=== PATIENT | female | born 1935 | race Caucasian/White ===

== ENCOUNTER 2017-08-14 08:15 | Day surgery (SDC) | payer MEDICARE, OTHER, SELFPAY ==
[2017-08-14 08:20] VITALS: BP 169/85; PULSE 74; RESP 16; TEMP 36.6; O2SAT 98; BMI 22.8
[2017-08-14] MEDS: diazePAM 5 MG TABLET 10 MG PO (08:27)
--- NOTE | 2017-08-14 08:29 | PM.HP.1 ---
History of Present Illness Date Patient Seen: 08/14/17 Time Patient Seen: 08:29 Chief complaint: flexible sigmoidoscopy [id number] Narrative: Patient here for a flexible sigmoidoscopy to evaluate an abnormal CT suggesting thickening of the sigmoid colon. She has chronic but intermittent left lower quadrant pain. Patient History Surgical History Status post hysterectomy Family & Social History Family History: Reviewed 08/14/17 by Eddy Juárez MD Social History: household members spouse Meds Home Medications Medication Instructions Recorded Confirmed Type [B FIFTY COMPLEX] #0 09/10/07 History zoster vaccine live (PF) [Zostavax 0.5 ml SQ QDAY #0.5 ml 01/12/17 Rx (PF)] cyclosporine [Restasis] 1 drp OPHTH BID #30 ea 04/08/17 Rx levothyroxine [Synthroid] 75 mcg PO QDAY #30 tab 06/10/17 Rx metoprolol succinate ER 25 mg 25 mg PO QDAY #30 tab 07/17/17 Rx tablet,extended release 24 hr ondansetron 4 mg disintegrating 4 mg SUBLINGUAL Q6HP PRN #20 odt 08/04/17 Rx tablet Allergies Allergy/AdvReac Type Severity Reaction Status Date / Time RAYMUNDO Inhibitors Allergy Severe RASH Unverified 06/17/17 12:06 [RAYMUNDO INHIBITORS] lisinopril [LISINOPRIL] Allergy Severe Unverified 06/17/17 12:06 Sulfa (Sulfonamide Allergy Severe RASH Unverified 06/17/17 12:06 Antibiotics) [SULFA (SULFONAMIDE ANTIBIOTICS)] Review of Systems Review of Systems All systems reviewed & are unremarkable except as noted in HPI and below Gastrointestinal Comments: See HPI Exam Vital Signs (past 8 hours): Vital Signs - 8 hr 08/14/17 08:20 Temperature 97.8 F Pulse Rate 74 Respiratory Rate 16 Blood Pressure 169/85 H Pulse Oximetry 98 Pulse Oximetry 98 Oxygen Delivery Method Room Air Narrative Exam Narrative: No apparent distress. Lungs are clear to auscultation. Heart regular rate and rhythm without murmur gallop. Abdomen is soft nontender without mass. Assessment & Plan Plan: Assessment/Plan Narrative: Flex sig. Risks and benefits were discussed in the office.
--- NOTE | 2017-08-14 08:32 | PM.PREOP ---
Pre-operative Note Interval Note Pre-op Check: History & Physical exam performed today ASA Class (for procedural sedation): II
--- NOTE | 2017-08-14 08:33 | P.HP_ITS ---
History of Present Illness Date Patient Seen: 08/14/17 Time Patient Seen: 08:29 Chief complaint: flexible sigmoidoscopy [id number] Narrative: Patient here for a flexible sigmoidoscopy to evaluate an abnormal CT suggesting thickening of the sigmoid colon. She has chronic but intermittent left lower quadrant pain. Patient History Surgical History Status post hysterectomy Family & Social History Family History: Reviewed 08/14/17 by Eddy Juárez MD Social History: household members spouse Meds Home Medications Medication Instructions Recorded Confirmed Type [B FIFTY COMPLEX] #0 09/10/07 History zoster vaccine live (PF) [Zostavax 0.5 ml SQ QDAY #0.5 ml 01/12/17 Rx (PF)] cyclosporine [Restasis] 1 drp OPHTH BID #30 ea 04/08/17 Rx levothyroxine [Synthroid] 75 mcg PO QDAY #30 tab 06/10/17 Rx metoprolol succinate ER 25 mg 25 mg PO QDAY #30 tab 07/17/17 Rx tablet,extended release 24 hr ondansetron 4 mg disintegrating 4 mg SUBLINGUAL Q6HP PRN #20 odt 08/04/17 Rx tablet Allergies Allergy/AdvReac Type Severity Reaction Status Date / Time RAYMUNDO Inhibitors Allergy Severe RASH Unverified 06/17/17 12:06 [RAYMUNDO INHIBITORS] lisinopril [LISINOPRIL] Allergy Severe Unverified 06/17/17 12:06 Sulfa (Sulfonamide Allergy Severe RASH Unverified 06/17/17 12:06 Antibiotics) [SULFA (SULFONAMIDE ANTIBIOTICS)] Review of Systems Review of Systems All systems reviewed & are unremarkable except as noted in HPI and below Gastrointestinal Comments: See HPI Exam Vital Signs (past 8 hours): Vital Signs - 8 hr 3 08/14/17 08:20 Temperature 97.8 F Pulse Rate 74 Respiratory Rate 16 Blood Pressure 169/85 H Pulse Oximetry 98 Pulse Oximetry 98 Oxygen Delivery Method Room Air Narrative Exam Narrative: No apparent distress. Lungs are clear to auscultation. Heart regular rate and rhythm without murmur gallop. Abdomen is soft nontender without mass. Assessment & Plan Plan: Assessment/Plan Narrative: Flex sig. Risks and benefits were discussed in the office.
[2017-08-14 09:48] VITALS: BP 147/80; PULSE 68; RESP 16; TEMP 36.7; O2SAT 96
--- NOTE | 2017-09-16 14:18 | PM.OP.ENDO ---
Operative Date/Time/Diagnoses Date of procedure: 08/14/17 Time of procedure: 00:00 Pre-op diagnosis: Abnormal CT scan suggesting possible colitis the sigmoid colon Post-op diagnosis: other (Normal exam of the sigmoid colon) Procedure & Clinicians Study performed: Flexible sigmoidoscopy Same procedure as scheduled: Yes Indications: Abnormal CT scan Surgeon: Eddy Juárez Procedure Notes SCOAP/Timeout: Performed Procedure in detail: The patient is placed in left lateral decubitus position. Digital exam was unremarkable. The scope was inserted advanced through the rectum into the sigmoid colon. There was some tortuosity. We reached approximately 60 cm and I could identify no area of concern for colitis. The scope was gradually removed. It was retroflexed and there was no significant finding. Scope withdrawal time: Not applicable Sedation minutes: 0 Findings: other findings (No colitis) Specimen(s): none sent Complications: none Recommendations: Other recommendation (Continue with the care you of already established) Follow up: as needed Disposition: same day surgery
== END 2017-08-14 09:10 | disposition home or self-care (01) ==
PROVIDERS: Family Provider Family Medicine; PCP Family Medicine; Visit Provider Specialist
PROC: 0DJD8ZZ Inspection of Lower Intestinal Tract, Via Natural or Artificial Opening Endoscopic (ICD-10-PCS; CPT 45378; principal; 2017-08-14 07:45)
DX: R93.5 Abnormal findings on diagnostic imaging of other abdominal regions, including retroperitoneum (principal); R10.32 Left lower quadrant pain
CPT/HCPCS: 45330

== ENCOUNTER 2017-12-31 18:26 | Emergency (ER) | payer MEDICARE, OTHER, SELFPAY ==
[2017-12-31 18:33] VITALS: BP 206/93; PULSE 78; RESP 16; TEMP 37.2; O2SAT 96; BMI 22.4
--- NOTE | 2017-12-31 18:53 | DI.CT.S_ITS ---
PROCEDURE: CT ABDOMEN PELVIS W CON INDICATIONS: severe abdominal pain TECHNIQUE: After the administration of intravenous contrast, 5 mm thick sections acquired from the diaphragm to the symphysis. 5 mm coronal and sagittal reformats were acquired. For radiation dose reduction, the following was used: automated exposure control, adjustment of mA and/or kV according to patient size. COMPARISON: [facility], CT, ABDOMEN/PELVIS WITH CONTRAST, 06/10/2017, 10:31. [facility], CT, ABDOMEN/PELVIS WITH CONTRAST, 10/03/2016, 15:45. [facility], CT, ABDOMEN/PELVIS WITH CONTRAST, 12/18/2015, 18:49. [facility], CT, CT BRAIN WO CON, 06/26/2015, 14:07. FINDINGS: Image quality: Excellent. ABDOMEN: Lung bases: Lung bases are clear. Heart size is normal. There is large hiatal hernia. Solid organs: Liver is normal in size and enhancement. Gallbladder is unremarkable. Biliary system is non dilated. Pancreas enhances normally. Spleen is normal in size and enhancement. There is a small volume of perisplenic free fluid. No adrenal nodules. Subcentimeter hypodense foci within the kidneys are too small to characterize on this exam but likely represent renal cysts. Kidneys demonstrate normal size and enhancement, without hydronephrosis. Peritoneum and bowel: There is no evidence of small bowel obstruction. There is diffuse fluid distention of the colon with mild hyperemia and colonic wall thickening. There is mild pericolonic fat stranding in the right anterior lower abdomen. There is a surgical anastomosis in the right hemiabdomen. No free fluid or air. Nodes and vessels: No retroperitoneal or mesenteric adenopathy by size criteria. Aorta and inferior vena cava are normal in size. PELVIS: Genitourinary: Bladder wall thickness is normal. Miscellaneous: Uterus is absent. Bones: No suspicious bony lesions. No vertebral body compression fractures. 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 IMPRESSION: Diffuse fluid filled colon with findings suggestive of a colonic ileus versus a colitis. Recommend followup abdominal CT to ensure resolution. Dictated by: Tavo Hodge M.D. on 12/31/2017 at 21:20 Approved by: Tavo Hodge M.D. on 12/31/2017 at 21:29
[2017-12-31 19:05] LABS: Add Manual Diff / Slide Review NO; Basophils Percent Auto 0.2 % (0-2); Eosinophils Percent Auto 0.5 % (2-4); Hematocrit 43.3 % (36-46); Hemoglobin 14.6 g/dL (12.0-16.0); Lymphocytes Percent Auto 10.2 % (25-40); Mean Corpuscular HGB Conc 33.8 % (30-36); Mean Corpuscular Hemoglobin 32.1 PG (26-34); Mean Corpuscular Volume 95.2 fL (80-100); Monocytes Percent Auto 4.3 % (3-14); Neutrophils Absolute Auto 11300 /uL (3000-5900); Neutrophils Percent Auto 84.8 % (50-75); Platelet Count 193 X10^3/uL (150-400); Red Blood Cell Count 4.55 X10^6/uL (4.0-5.2); Red Cell Distribution Width 12.7 % (11.6-14.8); White Blood Cell Count 13.3 X10^3/uL (4.5-11.0)
[2017-12-31] MEDS: HYDROMORPHONE 1 MG INJ 0.5 MG IV (19:17)
[2017-12-31] MEDS: ONDANSETRON 4 MG/2 ML INJ IV (19:18)
[2017-12-31] MEDS: SODIUM CHLORIDE 0.9% 1,000 ML 150 ML IV (19:18)
[2017-12-31 19:19] LABS: Alanine Aminotransferase 28 IU/L (9-52); Albumin 4.5 g/dL (3.5-5.0); Albumin Globulin Ratio 1.8 (1.0-2.8); Alkaline Phosphatase 54 U/L (38-126); Aspartate Aminotransferase 28 IU/L (14-36); BUN Creatinine Ratio 28.3 (6-22); Bilirubin Total 0.7 mg/dL (0.2-1.3); Blood Urea Nitrogen 17 mg/dL (7-17); Calcium 10.1 mg/dL (8.4-10.2); Carbon Dioxide 26 mmol/L (22-32); Chloride 101 mmol/L (98-107); Estimated Glomerular Filt Rate > 60.0 mL/min (>60); Globulin 2.5 g/dL (1.7-4.1); Glucose 109 mg/dL (80-110); HEMOLYSIS 36 (0-50); Lipase 40 U/L (23-300); Sodium 140 mmol/L (137-145)
--- NOTE | 2017-12-31 19:29 | ED.ABDPAIN ---
HPI - Abdominal Pain General Chief Complaint: Abdominal Pain Stated Complaint: PAIN IN LOWER ABD Time Seen by Provider: 12/31/17 18:37 Source: patient and family Mode of arrival: ambulatory Limitations: no limitations History of Present Illness HPI narrative: 82-year-old female, nonsmoker presents to the emergency department with a chief complaint generalized lower abdominal discomfort over the past few days. She has had nonspecific abdominal pain off and for the past 3 years, since she had a ruptured appendix requiring emergent surgery in 2014. She has had multiple scans, endoscopies and colonoscopies without any specific findings but it sounds like there is discussion about the potential of adhesions contributing to her pain. She denies provocation, palliation or radiation. She has nausea but denies vomiting or change in bowel habits. She denies any fever or chills. She denies dysuria, frequency or urgency. She had an EGD at an outside facility a few days ago with what sounds like unremarkable findings. Last colonoscopy was over the summer with Dr. Juárez which was unremarkable MD complaint: abdominal pain Onset (ago): day(s) Pain Consistency: intermittent Location: diffuse Severity: moderate Quality: cramping and aching Radiation: none Migration to: no migration Relieving factors: nothing Exacerbating factors: nothing Associated symptoms: nausea Related Data Home Medications Medication Instructions Recorded Confirmed [B FIFTY COMPLEX] #0 09/10/07 Previous Rx's Medication Instructions Recorded levothyroxine [Synthroid] 75 mcg PO QDAY #30 tab 06/10/17 cyclosporine 0.05 % eye drops in a 1 drp EYE-BOTH BID #30 ea 09/22/17 dropperette metoprolol succinate ER 25 mg 25 mg PO QDAY #30 tab 12/30/17 tablet,extended release 24 hr ondansetron 4 mg disintegrating 4 mg SUBLINGUAL Q6HP PRN #20 odt 12/30/17 tablet amoxicillin-pot clavulanate 1 tab PO BID #20 tab 12/31/17 [Augmentin] ondansetron [Zofran ODT] 4 mg PO Q6H PRN #14 tab 12/31/17 Allergies Allergy/AdvReac Type Severity Reaction Status Date / Time RAYMUNDO Inhibitors Allergy Severe RASH Verified 12/31/17 18:33 [RAYMUNDO INHIBITORS] lisinopril [LISINOPRIL] Allergy Severe Rash Verified 12/31/17 18:33 Sulfa (Sulfonamide Allergy Severe RASH Verified 12/31/17 18:33 Antibiotics) [SULFA (SULFONAMIDE ANTIBIOTICS)] Review of Systems Review of Systems All systems reviewed & are unremarkable except as noted in HPI and below Constitutional Denies chills, Denies fever(s), Denies lethargy and Denies weakness Eyes Denies change in vision, Denies eye discharge, Denies irritation and Denies loss of vision ENT Ears, Nose, Mouth, and Throat: Denies change in voice, Denies neck pain and Denies sore throat Cardiovascular Denies chest pain, Denies irregular heart rhythm, Denies lightheadedness, Denies palpitations, Denies dyspnea, Denies dyspnea on exertion and Denies orthopnea Respiratory Denies cough, Denies dyspnea, Denies dyspnea on exertion and Denies wheezing Gastrointestinal Gastrointestinal: Reports abdominal pain, Denies change in bowel habits, Denies diarrhea, Denies nausea and Denies vomiting Genitourinary Denies hematuria, Denies flank pain, Denies urinary incontinence and Denies urinary urgency Musculoskeletal Denies neck pain Integumentary/Breasts Denies pruritus, Denies erythema, Denies rash and Denies wounds Neurologic Denies confusion, Denies loss of vision and Denies weakness Psychiatric Denies anxiety, Denies confusion, Denies depression, Denies homicidal ideation and Denies suicidal ideation Endocrine Denies palpitations Hematologic/Lymphatic Denies easy bruising Allergic/Immunologic Denies wheezing PFSH Surgical History Status post hysterectomy Family History Mother Colon cancer Social History household members: spouse Exam Narrative Exam Narrative: GENERAL: This is a well-nourished, well-developed patient, in mild distress. HEAD: Atraumatic. Normocephalic. No temporal or scalp tenderness. EYES: Pupils equal round and reactive. Extraocular motions intact. No scleral icterus. No injection or drainage. ENT: Nose without bleeding, purulent drainage or septal hematoma. Throat without erythema, tonsillar hypertrophy or exudate. Uvula midline. Airway patent. NECK: Trachea midline. No JVD or lymphadenopathy. Supple, nontender, no meningeal signs. CARDIOVASCULAR: Regular rate and rhythm without murmurs, gallops, or rubs. RESPIRATORY: Clear to auscultation. Breath sounds equal bilaterally. No wheezes, rales, or rhonchi. GASTROINTESTINAL: Abdomen soft, mild generalized tenderness, nondistended. No hepato-splenomegaly, or palpable masses. No guarding. No change in bowel sounds EXTREMITIES: No clubbing, cyanosis, or edema. No joint tenderness, effusion, or edema noted. BACK: Nontender without deformity or crepitance. No flank tenderness. NEURO: AOx3. SKIN: No rash or erythema. Initial Vital Signs Initial Vital Signs: Vital Signs Temperature 99.0 F 12/31/17 18:33 Pulse Rate 78 12/31/17 18:33 Respiratory Rate 16 12/31/17 18:33 Blood Pressure 206/93 H 12/31/17 18:33 Pulse Oximetry 96 12/31/17 18:33 Course Orders Ordered: ED Orders 12/31/17 18:53 CT abdomen pelvis w con Stat 12/31/17 18:58 Complete Blood Count AUTO DIFF Stat Comprehensive Metabolic Panel Stat Lipase Stat Discontinued Medications Hydromorphone HCl (Dilaudid) 0.5 mg IV NOW ONE Stop: 12/31/17 18:53 Last Admin: 12/31/17 19:17 Dose: 0.5 mg Sodium Chloride (Normal Saline 0.9%) 1,000 mls @ 150 mls/hr IV CONT MARLO Last Infusion: 12/31/17 22:32 Dose: 0 mls/hr Infusion: 12/31/17 22:20 Dose: 150 mls/hr Admin: 12/31/17 19:18 Dose: 150 mls/hr Ondansetron HCl (Zofran) 4 mg IV Q4HR PRN PRN Reason: Nausea And Vomiting Last Admin: 12/31/17 19:18 Dose: 4 mg Vital Signs - 8 hr 12/31/17 18:33 Temperature 99.0 F Pulse Rate 78 Respiratory Rate 16 Blood Pressure 206/93 H Pulse Oximetry 96 MDM - Abdominal Pain Differential Diagnosis Differential diagnosis: Likely abdominal pain, acute appendicitis, calculus of kidney, constipation, diverticulitis, endometriosis, gastroenteritis, pancreatitis, small bowel obstruction and other Medical Records Attestation: I reviewed the patient's medical records. Lab Data Attestation: I reviewed the patient's lab results. Result diagrams: 12/31/17 18:58 12/31/17 18:58 Lab Results 12/31/17 12/31/17 Range/Units 18:58 18:58 WBC 13.3 H (4.5-11.0) X10^3/uL RBC 4.55 (4.0-5.2) X10^6/uL Hgb 14.6 (12.0-16.0) g/dL Hct 43.3 (36-46) % MCV 95.2 (80-100) fL MCH 32.1 (26-34) PG MCHC 33.8 (30-36) % RDW 12.7 (11.6-14.8) % Plt Count 193 (150-400) X10^3/uL Neut % (Auto) 84.8 H (50-75) % Lymph % (Auto) 10.2 L (25-40) % [place] % (Auto) 4.3 (3-14) % Eos % (Auto) 0.5 L (2-4) % Baso % (Auto) 0.2 (0-2) % Neut # (Auto) 66536 H (7369-8770) /uL Sodium 140 (137-145) mmol/L Potassium 4.0 (3.4-5.1) mmol/L Chloride 101 (98-107) mmol/L Carbon Dioxide 26 (22-32) mmol/L BUN 17 (7-17) mg/dL Creatinine 0.60 (0.52-1.04) mg/dL Estimated GFR > 60.0 (>60) mL/min BUN/Creatinine Ratio 28.3 H (6-22) Glucose 109 (80-110) mg/dL Calcium 10.1 (8.4-10.2) mg/dL Total Bilirubin 0.7 (0.2-1.3) mg/dL AST 28 (14-36) IU/L ALT 28 (9-52) IU/L Alkaline Phosphatase 54 (38-126) U/L Total Protein 7.0 (6.3-8.2) g/dL Albumin 4.5 (3.5-5.0) g/dL Globulin 2.5 (1.7-4.1) g/dL Albumin/Globulin Ratio 1.8 (1.0-2.8) Lipase 40 (23-300) U/L Point of care testing: Urine Dip Bedside Urine Glucose Negative Bedside Urine Bilirubin - Negative Bedside Urine Ketone - Negative Urine Specific [place] 1.010 Bedside Urine Occult Blood - Negative Bedside Urine pH 6.5 Bedside Urine Protein - Negative Bedside Urine Urobilinogen - Negative Bedside Urine Nitrite - Negative Bedside Urine Leukocytes - Negative Esterase Imaging Data CT scan - abdomen: Radiologist's impression: [address] [id number] [address] Scan Report Signed Patient: Cinthia Sow [facility]#: [id number] : 8Acct:[id number] Age/Sex: 82 / FDate of Service: 12/31/17 Loc: ED Accession Number: [id number] Procedure: CT abdomen pelvis w con Ordering Provider: Omer Arreola D.O. PROCEDURE: CT ABDOMEN PELVIS W CON INDICATIONS: severe abdominal pain TECHNIQUE: After the administration of intravenous contrast, 5 mm thick sections acquired from the diaphragm to the symphysis. 5 mm coronal and sagittal reformats were acquired. For radiation dose reduction, the following was used: automated exposure control, adjustment of mA and/or kV according to patient size. COMPARISON: [facility], CT, ABDOMEN/PELVIS WITH CONTRAST, 06/10/2017, 10:31. [facility], CT, ABDOMEN/PELVIS WITH CONTRAST, 10/03/2016, 15:45. [facility], CT, ABDOMEN/PELVIS WITH CONTRAST, 12/18/2015, 18:49. [facility], CT, CT BRAIN WO CON, 06/26/2015, 14:07. FINDINGS: Image quality: Excellent. ABDOMEN: Lung bases: Lung bases are clear. Heart size is normal. There is large hiatal hernia. Solid organs: Liver is normal in size and enhancement. Gallbladder is unremarkable. Biliary system is non dilated. Pancreas enhances normally. Spleen is normal in size and enhancement. There is a small volume of perisplenic free fluid. No adrenal nodules. Subcentimeter hypodense foci within the kidneys are too small to characterize on this exam but likely represent renal cysts. Kidneys demonstrate normal size and enhancement, without hydronephrosis. Peritoneum and bowel: There is no evidence of small bowel obstruction. There is diffuse fluid distention of the colon with mild hyperemia and colonic wall thickening. There is mild pericolonic fat stranding in the right anterior lower abdomen. There is a surgical anastomosis in the right hemiabdomen. No free fluid or air. Nodes and vessels: No retroperitoneal or mesenteric adenopathy by size criteria. Aorta and inferior vena cava are normal in size. PELVIS: Genitourinary: Bladder wall thickness is normal. Miscellaneous: Uterus is absent. Bones: No suspicious bony lesions. No vertebral body compression fractures. 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 IMPRESSION: Diffuse fluid filled colon with findings suggestive of a colonic ileus versus a colitis. Recommend followup abdominal CT to ensure resolution. Dictated by: Tavo Hodge M.D. on 12/31/2017 at 21:20 Approved by: Tavo Hodge M.D. on 12/31/2017 at 21:29 Discharge Plan Departure Patient Disposition: Home Clinical Impression: Colitis Discharge Date/Time: 12/31/17 22:38 Interventions: ED Discharge Assessment Last Done: 12/31/17 22:33 Instructions: DI for Colitis Activity Restrictions/Additional Instructions: *You have been diagnosed with [ colitis ] *What to do: *Take medications as directed *Follow up with your primary care provider in 2-3 days, call for an appointment. Let them know you were seen in the Emergency Department and that we ask that you be seen in follow up *Return to ER if you should have any new, worsening or concerning symptoms Prescriptions: New amoxicillin-pot clavulanate [Augmentin] 875-125 mg tablet 1 tab PO BID Qty: 20 RF: 0 ondansetron [Zofran ODT] 4 mg tablet,disintegrating 4 mg PO Q6H PRN (Reason: nausea and vomiting) Qty: 14 RF: 0 No Action [B FIFTY COMPLEX] Qty: 0 RF: 0 levothyroxine [Synthroid] 75 MCG tablet 75 mcg PO QDAY Qty: 30 RF: 3 cyclosporine [Restasis] 0.05 % dropperette 1 drp EYE-BOTH BID Qty: 30 RF: 1 ondansetron [Zofran ODT] 4 mg tablet,disintegrating 4 mg Sublingual Q6HP PRN (Reason: nausea) Qty: 20 RF: 3 metoprolol succinate [Toprol XL] 25 mg tablet extended release 24 hr 25 mg PO QDAY Qty: 30 RF: 3 Referrals: Tere Blakely MD [Primary Care Provider] -
--- NOTE | 2017-12-31 19:33 | ED_ITS ---
HPI - Abdominal Pain General Chief Complaint: Abdominal Pain Stated Complaint: PAIN IN LOWER ABD Time Seen by Provider: 12/31/17 18:37 Source: patient and family Mode of arrival: ambulatory Limitations: no limitations History of Present Illness HPI narrative: 82-year-old female, nonsmoker presents to the emergency department with a chief complaint generalized lower abdominal discomfort over the past few days. She has had nonspecific abdominal pain off and for the past 3 years, since she had a ruptured appendix requiring emergent surgery in 2014. She has had multiple scans, endoscopies and colonoscopies without any specific findings but it sounds like there is discussion about the potential of adhesions contributing to her pain. She denies provocation, palliation or radiation. She has nausea but denies vomiting or change in bowel habits. She denies any fever or chills. She denies dysuria, frequency or urgency. She had an EGD at an outside facility a few days ago with what sounds like unremarkable findings. Last colonoscopy was over the summer with Dr. Juárez which was unremarkable MD complaint: abdominal pain Onset (ago): day(s) Pain Consistency: intermittent Location: diffuse Severity: moderate Quality: cramping and aching Radiation: none Migration to: no migration Relieving factors: nothing Exacerbating factors: nothing Associated symptoms: nausea Related Data Home Medications Medication Instructions Recorded Confirmed [B FIFTY COMPLEX] #0 09/10/07 Previous Rx's Medication Instructions Recorded levothyroxine [Synthroid] 75 mcg PO QDAY #30 tab 06/10/17 cyclosporine 0.05 % eye drops in a 1 drp EYE-BOTH BID #30 ea 09/22/17 dropperette metoprolol succinate ER 25 mg 25 mg PO QDAY #30 tab 12/30/17 tablet,extended release 24 hr ondansetron 4 mg disintegrating 4 mg SUBLINGUAL Q6HP PRN #20 odt 12/30/17 tablet amoxicillin-pot clavulanate 1 tab PO BID #20 tab 12/31/17 [Augmentin] ondansetron [Zofran ODT] 4 mg PO Q6H PRN #14 tab 12/31/17 Allergies Allergy/AdvReac Type Severity Reaction Status Date / Time RAYMUNDO Inhibitors Allergy Severe RASH Verified 12/31/17 18:33 [RAYMUNDO INHIBITORS] lisinopril [LISINOPRIL] Allergy Severe Rash Verified 12/31/17 18:33 Sulfa (Sulfonamide Allergy Severe RASH Verified 12/31/17 18:33 Antibiotics) [SULFA (SULFONAMIDE ANTIBIOTICS)] Review of Systems Review of Systems All systems reviewed & are unremarkable except as noted in HPI and below Constitutional Denies chills, Denies fever(s), Denies lethargy and Denies weakness Eyes Denies change in vision, Denies eye discharge, Denies irritation and Denies loss of vision ENT Ears, Nose, Mouth, and Throat: Denies change in voice, Denies neck pain and Denies sore throat Cardiovascular Denies chest pain, Denies irregular heart rhythm, Denies lightheadedness, Denies palpitations, Denies dyspnea, Denies dyspnea on exertion and Denies orthopnea Respiratory Denies cough, Denies dyspnea, Denies dyspnea on exertion and Denies wheezing Gastrointestinal Gastrointestinal: Reports abdominal pain, Denies change in bowel habits, Denies diarrhea, Denies nausea and Denies vomiting Genitourinary Denies hematuria, Denies flank pain, Denies urinary incontinence and Denies urinary urgency Musculoskeletal Denies neck pain Integumentary/Breasts Denies pruritus, Denies erythema, Denies rash and Denies wounds Neurologic Denies confusion, Denies loss of vision and Denies weakness Psychiatric Denies anxiety, Denies confusion, Denies depression, Denies homicidal ideation and Denies suicidal ideation Endocrine Denies palpitations Hematologic/Lymphatic Denies easy bruising Allergic/Immunologic Denies wheezing PFSH Surgical History Status post hysterectomy Family History Mother Colon cancer Social History household members: spouse Exam Narrative Exam Narrative: GENERAL: This is a well-nourished, well-developed patient, in mild distress. HEAD: Atraumatic. Normocephalic. No temporal or scalp tenderness. EYES: Pupils equal round and reactive. Extraocular motions intact. No scleral icterus. No injection or drainage. ENT: Nose without bleeding, purulent drainage or septal hematoma. Throat without erythema, tonsillar hypertrophy or exudate. Uvula midline. Airway patent. NECK: Trachea midline. No JVD or lymphadenopathy. Supple, nontender, no meningeal signs. CARDIOVASCULAR: Regular rate and rhythm without murmurs, gallops, or rubs. RESPIRATORY: Clear to auscultation. Breath sounds equal bilaterally. No wheezes , rales, or rhonchi. GASTROINTESTINAL: Abdomen soft, mild generalized tenderness, nondistended. No hepato-splenomegaly, or palpable masses. No guarding. No change in bowel sounds EXTREMITIES: No clubbing, cyanosis, or edema. No joint tenderness, effusion, or edema noted. BACK: Nontender without deformity or crepitance. No flank tenderness. NEURO: AOx3. SKIN: No rash or erythema. Initial Vital Signs Initial Vital Signs: Vital Signs Temperature 99.0 F 12/31/17 18:33 Pulse Rate 78 12/31/17 18:33 Respiratory Rate 16 12/31/17 18:33 Blood Pressure 206/93 H 12/31/17 18:33 Pulse Oximetry 96 12/31/17 18:33 Course Orders Ordered: ED Orders 12/31/17 18:53 CT abdomen pelvis w con Stat 12/31/17 18:58 Complete Blood Count AUTO DIFF Stat Comprehensive Metabolic Panel Stat Lipase Stat Discontinued Medications Hydromorphone HCl (Dilaudid) 0.5 mg IV NOW ONE Stop: 12/31/17 18:53 Last Admin: 12/31/17 19:17 Dose: 0.5 mg Sodium Chloride (Normal Saline 0.9%) 1,000 mls @ 150 mls/hr IV CONT MARLO Last Infusion: 12/31/17 22:32 Dose: 0 mls/hr Infusion: 12/31/17 22:20 Dose: 150 mls/hr Admin: 12/31/17 19:18 Dose: 150 mls/hr Ondansetron HCl (Zofran) 4 mg IV Q4HR PRN PRN Reason: Nausea And Vomiting Last Admin: 12/31/17 19:18 Dose: 4 mg Vital Signs - 8 hr 12/31/17 18:33 Temperature 99.0 F Pulse Rate 78 Respiratory Rate 16 Blood Pressure 206/93 H Pulse Oximetry 96 MDM - Abdominal Pain Differential Diagnosis Differential diagnosis: Likely abdominal pain, acute appendicitis, calculus of kidney, constipation, diverticulitis, endometriosis, gastroenteritis, pancreatitis, small bowel obstruction and other Medical Records Attestation: I reviewed the patient's medical records. Lab Data Attestation: I reviewed the patient's lab results. Result diagrams: 12/31/17 18:58 12/31/17 18:58 Lab Results 12/31/17 12/31/17 Range/Units 18:58 18:58 WBC 13.3 H (4.5-11.0) X10^3/uL RBC 4.55 (4.0-5.2) X10^6/uL Hgb 14.6 (12.0-16.0) g/dL Hct 43.3 (36-46) % MCV 95.2 (80-100) fL MCH 32.1 (26-34) PG MCHC 33.8 (30-36) % RDW 12.7 (11.6-14.8) % Plt Count 193 (150-400) X10^3/uL Neut % (Auto) 84.8 H (50-75) % Lymph % (Auto) 10.2 L (25-40) % Heard % (Auto) 4.3 (3-14) % Eos % (Auto) 0.5 L (2-4) % Baso % (Auto) 0.2 (0-2) % Neut # (Auto) 04345 H (0882-3339) /uL Sodium 140 (137-145) mmol/L Potassium 4.0 (3.4-5.1) mmol/L Chloride 101 (98-107) mmol/L Carbon Dioxide 26 (22-32) mmol/L BUN 17 (7-17) mg/dL Creatinine 0.60 (0.52-1.04) mg/dL Estimated GFR > 60.0 (>60) mL/min BUN/Creatinine Ratio 28.3 H (6-22) Glucose 109 (80-110) mg/dL Calcium 10.1 (8.4-10.2) mg/dL Total Bilirubin 0.7 (0.2-1.3) mg/dL AST 28 (14-36) IU/L ALT 28 (9-52) IU/L Alkaline Phosphatase 54 (38-126) U/L Total Protein 7.0 (6.3-8.2) g/dL Albumin 4.5 (3.5-5.0) g/dL Globulin 2.5 (1.7-4.1) g/dL Albumin/Globulin Ratio 1.8 (1.0-2.8) Lipase 40 (23-300) U/L Point of care testing: Urine Dip Bedside Urine Glucose Negative Bedside Urine Bilirubin - Negative Bedside Urine Ketone - Negative Urine Specific [place] 1.010 Bedside Urine Occult Blood - Negative Bedside Urine pH 6.5 Bedside Urine Protein - Negative Bedside Urine Urobilinogen - Negative Bedside Urine Nitrite - Negative Bedside Urine Leukocytes - Negative Esterase Imaging Data CT scan - abdomen: Radiologist's impression: [address] [address] [address] Scan Report Signed Patient: Cinthia Sow [facility]#: [id number] : 8Acct:[id number] Age/Sex: 82 / FDate of Service: 12/31/17 Loc: ED Accession Number: [id number] Procedure: CT abdomen pelvis w con Ordering Provider: Omer Arreola D.O. PROCEDURE: CT ABDOMEN PELVIS W CON INDICATIONS: severe abdominal pain TECHNIQUE: After the administration of intravenous contrast, 5 mm thick sections acquired from the diaphragm to the symphysis. 5 mm coronal and sagittal reformats were acquired. For radiation dose reduction, the following was used: automated exposure control, adjustment of mA and/or kV according to patient size. COMPARISON: [facility], CT, ABDOMEN/PELVIS WITH CONTRAST, 06/10/2017, 10: 31. [facility], CT, ABDOMEN/PELVIS WITH CONTRAST, 10/03/2016, 15:45. [facility], CT, ABDOMEN/PELVIS WITH CONTRAST, 12/18/2015, 18:49. [facility], CT, CT BRAIN WO CON, 06/26/2015, 14:07. FINDINGS: Image quality: Excellent. ABDOMEN: Lung bases: Lung bases are clear. Heart size is normal. There is large hiatal hernia. Solid organs: Liver is normal in size and enhancement. Gallbladder is unremarkable. Biliary system is non dilated. Pancreas enhances normally. Spleen is normal in size and enhancement. There is a small volume of perisplenic free fluid. No adrenal nodules. Subcentimeter hypodense foci within the kidneys are too small to characterize on this exam but likely represent renal cysts. Kidneys demonstrate normal size and enhancement, without hydronephrosis. Peritoneum and bowel: There is no evidence of small bowel obstruction. There is diffuse fluid distention of the colon with mild hyperemia and colonic wall thickening. There is mild pericolonic fat stranding in the right anterior lower abdomen. There is a surgical anastomosis in the right hemiabdomen. No free fluid or air. Nodes and vessels: No retroperitoneal or mesenteric adenopathy by size criteria. Aorta and inferior vena cava are normal in size. PELVIS: Genitourinary: Bladder wall thickness is normal. Miscellaneous: Uterus is absent. Bones: No suspicious bony lesions. No vertebral body compression fractures. 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 IMPRESSION: Diffuse fluid filled colon with findings suggestive of a colonic ileus versus a colitis. Recommend followup abdominal CT to ensure resolution. Dictated by: Tavo Hodge M.D. on 12/31/2017 at 21:20 Approved by: Tavo Hodge M.D. on 12/31/2017 at 21:29 Discharge Plan Departure Patient Disposition: Home Clinical Impression: Colitis Discharge Date/Time: 12/31/17 22:38 Interventions: ED Discharge Assessment Last Done: 12/31/17 22:33 Instructions: DI for Colitis Activity Restrictions/Additional Instructions: *You have been diagnosed with [ colitis ] *What to do: *Take medications as directed *Follow up with your primary care provider in 2-3 days, call for an appointment. Let them know you were seen in the Emergency Department and that we ask that you be seen in follow up *Return to ER if you should have any new, worsening or concerning symptoms Prescriptions: New amoxicillin-pot clavulanate [Augmentin] 875-125 mg tablet 1 tab PO BID Qty: 20 RF: 0 ondansetron [Zofran ODT] 4 mg tablet,disintegrating 4 mg PO Q6H PRN (Reason: nausea and vomiting) Qty: 14 RF: 0 No Action [B FIFTY COMPLEX] Qty: 0 RF: 0 levothyroxine [Synthroid] 75 MCG tablet 75 mcg PO QDAY Qty: 30 RF: 3 cyclosporine [Restasis] 0.05 % dropperette 1 drp EYE-BOTH BID Qty: 30 RF: 1 ondansetron [Zofran ODT] 4 mg tablet,disintegrating 4 mg Sublingual Q6HP PRN (Reason: nausea) Qty: 20 RF: 3 metoprolol succinate [Toprol XL] 25 mg tablet extended release 24 hr 25 mg PO QDAY Qty: 30 RF: 3 Referrals: Tere Blakely MD [Primary Care Provider] -
== END 2017-12-31 22:38 | disposition home or self-care (01) ==
PROVIDERS: Emergency Provider Emergency Medicine; Family Provider Family Medicine; PCP Family Medicine
DX: K52.9 Noninfective gastroenteritis and colitis, unspecified (principal)
CPT/HCPCS: 36591; 74177; 80053; 81003; 83690; 85025; 96361; 96374; 99283; 99285; J1170; J2405

== ENCOUNTER → 2018-01-20 07:19 | Outpatient (CLI) | payer MEDICARE, OTHER, SELFPAY ==
--- NOTE | 2018-01-20 | DI.US.S_ITS ---
PROCEDURE: US PELVIC COMPLETE INDICATIONS: PAIN TECHNIQUE: Real-time scanning was performed of the pelvic organs, with image documentation. Additional endovaginal scanning was necessary due to incomplete visualization of the adnexal and endometrial structures by transabdominal scanning. COMPARISON: [facility], CT, CT ABDOMEN PELVIS W CON, 12/31/2017, 20:00. FINDINGS: Transabdominal scanning: Limited scanning through the kidneys shows no hydronephrosis. No pathologic free abdominal or pelvic fluid. Endovaginal scanning: Uterus: Surgically absent. Ovaries: Surgically absent. No adnexal masses seen. Grossly normal appearance of the right and left kidney. IMPRESSION: Limited exam demonstrating no source for pelvic pain. Dictated by: Saravanan MURILLO Interpreted: Liseth Emerson MD on 01/20/2018 at 10:05 Approved by: Liseth Emerson M.D. on 01/20/2018 at 15:39
== END ==
PROVIDERS: PCP Family Medicine; Visit Provider Physician Assistant
DX: R10.9 Unspecified abdominal pain (principal); R10.2 Pelvic and perineal pain
CPT/HCPCS: 76830; 76856

== ENCOUNTER 2018-06-07 17:15 | Emergency (ER) | payer MEDICARE, OTHER, SELFPAY ==
[2018-06-07 17:21] VITALS: BP 180/79; PULSE 70; RESP 18; TEMP 37.2; O2SAT 98; BMI 23.4
[2018-06-07 19:43] VITALS: BP 165/75; PULSE 64; RESP 17; O2SAT 100
== END 2018-06-07 20:06 | disposition left against medical advice (07) ==
PROVIDERS: Emergency Provider Emergency Medicine; PCP Family Medicine
DX: Z53.21 Procedure and treatment not carried out due to patient leaving prior to being seen by health care provider (principal)
CPT/HCPCS: 99281

== ENCOUNTER 2018-06-26 12:51 | Observation (INO) | payer MEDICARE, OTHER, SELFPAY ==
[2018-06-26] VITALS (10 sets, daily range): BP systolic 116–167; BP diastolic 59–93; PULSE 72–81; RESP 14–18; TEMP 36.5–36.7; O2SAT 93–100; BMI 21.7
--- NOTE | 2018-06-26 13:05 | DI.RAD.S_ITS ---
PROCEDURE: XR CHEST 1V INDICATIONS: memory changes, speech, onset 1215pm today TECHNIQUE: One view of the chest was acquired. COMPARISON: None. FINDINGS: Surgical changes and devices: None. Lungs and pleura: Lungs are clear. No pleural effusions or pneumothorax. Mediastinum: Mediastinal contours appear normal. Heart size is normal. Bones and chest wall: No suspicious bony lesions. Overlying soft tissues appear unremarkable. IMPRESSION: Stable examination of the chest without acute cardiopulmonary abnormalities. Dictated by: Rafat Alicia M.D. on 06/26/2018 at 14:08 Approved by: Rafat Alicia M.D. on 06/26/2018 at 14:09
--- NOTE | 2018-06-26 13:05 | DI.CT.S_ITS ---
PROCEDURE: CT HEAD/BRAIN WO CON INDICATIONS: memory changes, speech, onset 1215pm today TECHNIQUE: Noncontrast 4.5 mm thick angled axial sections acquired from the foramen magnum to the vertex, with coronal and sagittal reformats. For radiation dose reduction, the following was used: automated exposure control, adjustment of mA and/or kV according to patient size. COMPARISON: None. FINDINGS: Image quality: Excellent. CSF spaces: Basal cisterns are patent. No extra-axial fluid collections. The ventricles are symmetric in size and shape. Brain: No intracranial bleeds or masses. There is cerebral volume loss for age, with resultant ventricular and sulcal prominence. There are periventricular and deep white matter chronic small vessel ischemic changes. Tiny bilateral basal ganglial hypodensities likely representing sequela of remote lacunar infarcts. There is intracranial internal carotid artery atherosclerosis. Skull and face: Calvarium and visualized facial bones appear intact, without suspicious lesions. Sinuses: Visualized sinuses and mastoids are clear. IMPRESSION: CT head without acute intracranial abnormalities. Age-related senescent changes with sequela of chronic small vessel ischemic disease. If there is persistent or high clinical suspicion for acute cerebrovascular ischemia/stroke, more sensitive evaluation with brain MRI can be considered. Dictated by: Rafat Alicia M.D. on 06/26/2018 at 13:19 Approved by: Rafat Alicia M.D. on 06/26/2018 at 13:21
[2018-06-26 13:28] LABS: Add Manual Diff / Slide Review NO; Basophils Absolute Auto 0 /uL (0-100); Basophils Percent Auto 0.2 % (0-2); Eosinophils Absolute Auto 100 /uL (0-450); Eosinophils Percent Auto 1.7 % (2-4); Hematocrit 39.4 % (36-46); Hemoglobin 13.3 g/dL (12.0-16.0); Lymphocytes Absolute Auto 1900 /uL (1100-4500); Lymphocytes Percent Auto 29.8 % (25-40); Mean Corpuscular HGB Conc 33.9 % (30-36); Mean Corpuscular Hemoglobin 32.6 PG (26-34); Mean Corpuscular Volume 96.3 fL (80-100); Monocytes Absolute Auto 600 /uL (0-900); Monocytes Percent Auto 9.7 % (3-14); Neutrophils Absolute Auto 3800 /uL (1500-7000); Neutrophils Percent Auto 58.6 % (50-75); Platelet Count 163 X10^3/uL (150-400); Red Blood Cell Count 4.09 X10^6/uL (4.0-5.2); Red Cell Distribution Width 12.4 % (11.6-14.8); White Blood Cell Count 6.5 X10^3/uL (4.5-11.0)
[2018-06-26 13:35] LABS: Prothrombin Time 11.5 SECONDS (10.1-12.7)
[2018-06-26 13:38] LABS: PTT Partial Thromboplastin Tim 26 SECONDS (26.4-36.2)
[2018-06-26 13:39] LABS: Blood Urea Nitrogen 21 mg/dL (7-17); Calcium 9.4 mg/dL (8.4-10.2); Carbon Dioxide 25 mmol/L (22-32); Chloride 103 mmol/L (98-107); Estimated Glomerular Filt Rate > 60.0 mL/min (>60); Glucose 107 mg/dL (80-110); HEMOLYSIS < 15 (0-50); Potassium 3.6 mmol/L (3.4-5.1); Sodium 136 mmol/L (137-145)
[2018-06-26 13:51] LABS: Troponin I < 0.012 ng/mL (0.01-0.034)
--- NOTE | 2018-06-26 13:52 | ED.NEUROSD ---
HPI - Neuro Symptoms/Deficit General Chief Complaint: Neuro Symptoms/Deficit Stated Complaint: DOESNT FEEL RIGHT Time Seen by Provider: 06/26/18 13:05 Source: patient and family () Mode of arrival: wheelchair Limitations: no limitations History of Present Illness HPI Narrative: This is an 82-year-old female who comes to the emergency department for concern for stroke. She was with her at home at 12:15 p.m. when he noticed that she was having a little bit of droop of her eyelid and face. This was on the right. He noticed she had a little bit of trouble with her speech and she also had trouble so restraining her thoughts together or thinking clearly. She had trouble coordinating typical activities like putting a roast in the oven, turning on knowing to turn off her to take it out. They were concerned and so patient was brought to the ER. Patient has been having some improvement of her symptoms they are still present. She states she feels a little bit off as well. She did describe sort of a fog like she sort of looking through lace at 1 point with both eyes. She also feels sort of foggy in her mentation as well. she does not feel weak. She was able to walk and ambulate out of the house into the car without any issue. Either 1 of them noticed any weakness or numbness. She states she felt sort of a pain in the top of her head and almost like a pop or discomfort. She does have a little bit of a headache although it is resolving. She denies any chest pain or shortness of breath, no other GI or urinary symptoms. On Anticoagulants: No Related Data Home Medications Medication Instructions Recorded Confirmed [B FIFTY COMPLEX] 1 mg PO DAILY #0 09/10/07 06/26/18 levothyroxine [Synthroid] 88 mcg PO DAILY 06/26/18 06/26/18 Previous Rx's Medication Instructions Recorded metoprolol succinate ER 25 mg 25 mg PO QDAY #90 tab 06/08/18 tablet,extended release 24 hr Allergies Allergy/AdvReac Type Severity Reaction Status Date / Time RAYMUNDO Inhibitors Allergy Severe RASH Verified 06/26/18 13:28 [RAYMUNDO INHIBITORS] lisinopril [LISINOPRIL] Allergy Severe Rash Verified 06/26/18 13:28 Sulfa (Sulfonamide Allergy Severe RASH Verified 06/26/18 13:28 Antibiotics) [SULFA (SULFONAMIDE ANTIBIOTICS)] Review of Systems Review of Systems ROS Unobtainable: All systems reviewed & are unremarkable except as noted in HPI and below Constitutional Denies chills, Denies fever(s), Denies frequent falls, Reports headache(s) (better), Denies lethargy and Denies weakness Eyes Reports change in vision ENT Ears, Nose, Mouth, and Throat: Denies vertigo, Denies dizziness, Reports headache(s) (better) and Reports other (facial droop/eye drop, resolved) Cardiovascular Denies chest pain, Denies syncope, Denies irregular heart rhythm, Denies lightheadedness, Denies palpitations, Denies dyspnea, Denies dyspnea on exertion and Denies orthopnea Respiratory Denies cough, Denies dyspnea, Denies dyspnea on exertion and Denies wheezing Gastrointestinal Gastrointestinal: Denies abdominal pain, Denies change in bowel habits, Denies diarrhea, Denies nausea and Denies vomiting Genitourinary Denies hematuria, Denies urinary frequency, Denies flank pain, Denies urinary incontinence and Denies urinary urgency Musculoskeletal Denies muscle weakness and Denies numbness Neurologic Reports abnormal speech, Reports confusion, Denies vertigo, Denies dizziness, Denies syncope, Denies frequent falls, Reports headache(s) (better), Denies focal weakness, Denies numbness, Denies sensory deficit and Denies weakness Psychiatric Reports confusion Endocrine Denies palpitations Allergic/Immunologic Denies wheezing PFSH Medical History Essential hypertension (Chronic) Acquired hypothyroidism (Chronic) GERD with esophagitis (Chronic) Anxiety (Chronic) Surgical History Status post hysterectomy Family History Mother Colon cancer Social History household members: spouse Smoking Status: Never smoker Family History Mother Colon cancer Social History household members: spouse Smoking Status: Never smoker Exam Narrative Exam Narrative: GEN: well nourished, well appearing female, alert and oriented x 3, patient appears to be in mild distress. patient seems slightly confused but can't answer mass majority of questions HEENT: Atraumatic, pupils are equal round reactive to light, extraocular movements are intact, there is no conjunctival pallor. Throat is clear without any exudates, erythema, tonsillar enlargement or uvular deviation, no facial droop. HEART: Regular rate and rhythm without murmur, clicks, rubs. Pulses are equal in upper and lower extremities LUNGS:Lungs clear to auscultation, no wheezes, rales, crackles, chest moves symmetrically ABD:bowel sounds normal, soft, non-tender, no guarding, rebound, rigidity, no masses noted, no hepatosplenomegaly MSCL: Non-tender, no muscle atrophy, muscles strength 5/5 upper and lower extremities, full range of motion, gait not tested. NEURO:CN 2-12 intact, sensation normal, finger nose finger test normal, heel meadows test normal Initial Vital Signs Initial Vital Signs: Vital Signs Temperature 98.0 F 06/26/18 13:28 Pulse Rate 81 06/26/18 13:28 Respiratory Rate 14 06/26/18 13:28 Blood Pressure 162/59 H 06/26/18 13:28 Pulse Oximetry 99 06/26/18 13:28 Scores NIH Stroke Scale Level of Conciousness: Alert, keenly responsive Ask month/age: Answers one question correctly, intubated follow commands Open/close eyes, close hand: Performs both tasks correctly Best gaze horizontal: Normal Visual mckay: No visual loss Facial palsy: Normal symetrical movement Left arm drift: No drift for full 10 sec Right arm drift: No drift for full 10 sec Left leg drift: No drift for full 10 sec Right leg drift: No drift for full 10 sec Limb ataxia: Absent Sensory on face/arms/legs: Normal, no sensory loss Best language: Mild to moderate, slurs some words Dysarthria: Normal Extinction or inattention: No abnormality Total NIH Stroke scale score: 2 Course Orders Ordered: ED Orders 06/26/18 13:05 CT head/brain wo con Stat XR chest 1V Stat Urine Drug Screen, Rapid Stat EKG-12 Lead Stat 06/26/18 13:15 Basic Metabolic Panel Stat Complete Blood Count AUTO DIFF Stat Partial Thromboplastin Time Stat Prothrombin Time INR Stat Troponin I Stat 06/26/18 13:59 CT angio head and neck Stat 06/26/18 16:56 Consult to Discharge Planning Routine Consult to Occupational Therapy Evaluate & Treat Consult to Physical Therapy Evaluate & Treat Consult to Speech Therapy Evaluate & Treat EC echo doppler complete Routine MR stroke Stat Education, smoking cessation ONGOING Education, smoking cessation ONGOING 06/26/18 18:42 MR stroke Routine 06/27/18 05:00 Lipid Panel Routine TSH w/ Reflex to FT4 Routine Acetaminophen (Tylenol) 650 mg PO Q6HR PRN PRN Reason: As Needed for Fever/Mild Pain Aspirin (Aspirin Ec) 325 mg PO DAILY MARLO Atorvastatin Calcium (Lipitor) 40 mg PO BEDTIME MARLO Clopidogrel Bisulfate (Plavix) 75 mg PO DAILY MARLO Enoxaparin Sodium (Lovenox) 40 mg SUBCUT DAILY MARLO Levothyroxine Sodium (Synthroid) 75 mcg PO 0700 MARLO Metoprolol Succinate (Toprol Xl) 25 mg PO DAILY MARLO Cyclosporine [ (Restasis]) 1 drop EYE-BOTH BID MARLO Discontinued Medications Aspirin (Aspirin Chew) 324 mg PO NOW ONE Stop: 06/26/18 13:54 Last Admin: 06/26/18 15:04 Dose: 324 mg Sodium Chloride (Normal Saline 0.9%) 1,000 mls @ 150 mls/hr IV CONT MARLO Last Infusion: 06/26/18 16:49 Dose: 0 mls/hr Admin: 06/26/18 15:05 Dose: 150 mls/hr Vital Signs - 8 hr 06/26/18 13:28 06/26/18 13:30 06/26/18 14:00 Temperature 98.0 F Pulse Rate 81 74 72 Respiratory Rate 14 16 17 Blood Pressure 162/59 H Blood Pressure [Right Arm] 167/71 H 155/66 H Pulse Oximetry 99 100 100 06/26/18 14:45 06/26/18 15:00 06/26/18 16:55 Temperature 97.8 F Pulse Rate 77 72 74 Respiratory Rate 16 16 16 Blood Pressure 162/93 H Blood Pressure [Right Arm] 162/60 H 134/71 Pulse Oximetry 99 100 100 MDM - Neuro Symptoms/Deficit Lab Data Attestation: I reviewed the patient's lab results. Result diagrams: 06/26/18 13:15 06/26/18 13:15 Lab Results 04/20/19 04/20/19 04/20/19 Range/Units 13:15 13:15 13:15 WBC 6.5 (4.5-11.0) X10^3/uL RBC 4.09 (4.0-5.2) X10^6/uL Hgb 13.3 (12.0-16.0) g/dL Hct 39.4 (36-46) % MCV 96.3 (80-100) fL MCH 32.6 (26-34) PG MCHC 33.9 (30-36) % RDW 12.4 (11.6-14.8) % Plt Count 163 (150-400) X10^3/uL Neut % (Auto) 58.6 (50-75) % Lymph % (Auto) 29.8 (25-40) % Perkins % (Auto) 9.7 (3-14) % Eos % (Auto) 1.7 L (2-4) % Baso % (Auto) 0.2 (0-2) % Neut # (Auto) 3800 (2063-4223) /uL Lymph # (Auto) 1900 (4120-1910) /uL Perkins # (Auto) 600 (0-900) /uL Eos # (Auto) 100 (0-450) /uL Baso # (Auto) 0 (0-100) /uL PT 11.5 (10.1-12.7) SECONDS INR 1.0 (0.9-1.3) APTT 26 L (26.4-36.2) SECONDS Sodium 136 L (137-145) mmol/L Potassium 3.6 (3.4-5.1) mmol/L Chloride 103 (98-107) mmol/L Carbon Dioxide 25 (22-32) mmol/L BUN 21 H (7-17) mg/dL Creatinine 0.70 (0.52-1.04) mg/dL Estimated GFR > 60.0 (>60) mL/min BUN/Creatinine Ratio 30.0 H (6-22) Glucose 107 (80-110) mg/dL Calcium 9.4 (8.4-10.2) mg/dL Troponin I < 0.012 (0.01-0.034) ng/mL Point of Care Testing Glucose POC 113 Urine Dip Bedside Urine Glucose Negative Bedside Urine Bilirubin - Negative Bedside Urine Ketone - Negative Urine Specific Echo 1.010 Bedside Urine Occult Blood - Negative Bedside Urine pH 6.0 Bedside Urine Protein - Negative Bedside Urine Urobilinogen - Negative Bedside Urine Nitrite - Negative Bedside Urine Leukocytes - Negative Esterase Imaging Data CTA head/neck: Radiologist's impression: Cinthia Sow 82 F [address] [address] [address] Scan Report Signed Patient: Cinthia Sow [facility]#: [id number] : 1935cct:[id number] Age/Sex: 82 / FDate of Service: 06/26/18 Loc: ED Accession Number: [id number] Procedure: CT angio head and neck Ordering Provider: Darlene Briscoe D.O. PROCEDURE: CT ANGIO HEAD AND NECK INDICATIONS: facial droop. resolved, ? confusion TECHNIQUE: Pre-contrast 4.5 mm thick sections acquired from the foramen magnum to the vertex. After the administration of intravenous contrast, 1 mm thick sections acquired from the aortic arch through the [place]. Post-contrast 4.5 mm thick sections then re-acquired from the foramen magnum to the vertex. 3-dimensional ytzrsfe-sdcrhzayu-obbumnrdmc (MIP) and/or volume rendering reformats were acquired of the central intracranial vasculature and neck separately. COMPARISON: None. FINDINGS: Image quality: Excellent. BRAIN: CSF spaces: Ventricles are normal in size and shape. Basal cisterns are patent. No extra-axial fluid collections. Brain: No midline shift. No intracranial bleeds or masses. Servin-white matter interface appears intact. No suspicious enhancement. Skull and face: Calvarium and facial bones appear intact, without suspicious lesions. Orbits appear normal. Sinuses: Sinuses and mastoids are clear. HEAD CT ANGIOGRAPHY: Anterior circulation: Intracranial internal carotid arteries are normal in size and flow. The right A1 segment of the anterior cerebral artery is not visualized. There is suggestion of a diminutive A1 segment versus congenital absence. The right anterior cerebral artery otherwise appears to be supplied off the left anterior cerebral artery. The flow within the paired distal anterior cerebral arteries is normal and symmetric. The flow within the middle cerebral arteries is normal and symmetric. Atherosclerotic plaques are noted in the cavernous segments of the bilateral internal carotid arteries without hemodynamically significant stenosis. No aneurysms are seen. Posterior circulation: Visualized portions of the vertebral arteries demonstrate normal caliber, and join to form a normal appearing basilar artery. Flow within the posterior cerebral arteries is normal and symmetric. No aneurysms are seen. NECK CT ANGIOGRAPHY: Carotid system: The great vessels demonstrate a conventional anatomy as they arise from the aortic arch. The origins of the common carotid arteries appear patent. There are atherosclerotic calcifications in the bilateral bifurcation without hemodynamically significant stenosis. The common carotid arteries demonstrate normal caliber and courses. The bifurcation regions are both widely patent. The internal carotid arteries demonstrate normal calibers and courses. Posterior circulation: The origins of the left vertebral artery is widely patent. There is mild narrowing versus a tortuous segment of the proximal right vertebral artery. The more superior extracranial portions of both vertebral arteries also demonstrate normal courses and calibers. They join to form a normal appearing basilar artery. Soft tissues: Visualized neck soft tissues demonstrate no suspicious abnormalities. Bones: No suspicious bony lesions. Severe multilevel cervical spondylosis most severe at C4-5 and C5-6. IMPRESSION: 1. 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 2. Atherosclerotic disease involving the carotid bifurcation and cavernous segments of the internal carotid arteries without hemodynamically significant stenosis. 3. Narrowing of the proximal right vertebral artery which may be related to stenosis versus a tortuous segment of the vessel. Other chronic findings as above. Any quantitative measurements of stenosis were performed using NASCET criteria. Dictated by: Rafat Alicia M.D. on 06/26/2018 at 15:22 Approved by: Rafat Alicia M.D. on 06/26/2018 at 15:37 Chest x-ray: Radiologist's impression: [facility] DATE TYPE STATUS AUTHOR Calderon 06/26/18 13:59 Rafat Alicia 06/26/18 13:05 Rafat Alicia 06/26/18 13:05 Rafat Alicia 01/20/18 00:00 Liseth Emerson 12/31/17 18:53 Tavo Hodge 08/14/17 08:15 JuanjoseCinthia Rush 82, F0 1935 [facility] ER, ED.LOC - Main ED: R12 54kg Neuro Symptoms/Deficit Search Chart NF - Not included in interaction checking RASH Rash RASH ONSET 01/18/15 01/18/15 01/18/15 01/18/15 04/12/15 07/09/15 08/10/15 08/10/15 12/03/15 12/25/15 10/18/16 10/18/16 10/18/16 01/31/18 Today 15:00 Cinthia Sow 82 F [address] [address] XRay Report Signed Patient: Cinthia Sow [facility]#: [id number] : 8Acct:[id number] Age/Sex: 82 / FDate of Service: 06/26/18 Loc: ED Accession Number: [id number] Procedure: XR chest 1V Ordering Provider: Darlene Briscoe D.O. PROCEDURE: XR CHEST 1V INDICATIONS: memory changes, speech, onset 1215pm today TECHNIQUE: One view of the chest was acquired. COMPARISON: None. FINDINGS: Surgical changes and devices: None. Lungs and pleura: Lungs are clear. No pleural effusions or pneumothorax. Mediastinum: Mediastinal contours appear normal. Heart size is normal. Bones and chest wall: No suspicious bony lesions. Overlying soft tissues appear unremarkable. IMPRESSION: Stable examination of the chest without acute cardiopulmonary abnormalities. Dictated by: Rafat Alicia M.D. on 06/26/2018 at 14:08 Approved by: Rafat Alicia M.D. on 06/26/2018 at 14:09 CT scan - head: Radiologist's impression: [facility] DATE TYPE STATUS AUTHOR Hx 06/26/18 13:59 Rafat Alicia 06/26/18 13:05 Rafat Alicia 06/26/18 13:05 Rafat Alicia 01/20/18 00:00 Liseth Emerson 12/31/17 18:53 Tavo Hodge 08/14/17 08:15 Cinthia Sow 82, F0 1935 [facility] ER, ED.LOC - Main ED: R12 54kg Neuro Symptoms/Deficit Search Chart NF - Not included in interaction checking RASH Rash RASH ONSET 01/18/15 01/18/15 01/18/15 01/18/15 04/12/15 07/09/15 08/10/15 08/10/15 12/03/15 12/25/15 12/25/15 12/25/15 12/25/15 04/08/17 Today 15:00 Cinthia Sow 82 F [address] [address] [address] Scan Report Signed Patient: Cinthia Sow [facility]#: [id number] : 1935cct:[id number] Age/Sex: 82 / FDate of Service: 06/26/18 Loc: ED Accession Number: [id number] Procedure: CT head/brain wo con Ordering Provider: Darlene Briscoe D.O. PROCEDURE: CT HEAD/BRAIN WO CON INDICATIONS: memory changes, speech, onset 1215pm today TECHNIQUE: Noncontrast 4.5 mm thick angled axial sections acquired from the foramen magnum to the vertex, with coronal and sagittal reformats. For radiation dose reduction, the following was used: automated exposure control, adjustment of mA and/or kV according to patient size. COMPARISON: None. FINDINGS: Image quality: Excellent. CSF spaces: Basal cisterns are patent. No extra-axial fluid collections. The ventricles are symmetric in size and shape. Brain: No intracranial bleeds or masses. There is cerebral volume loss for age, with resultant ventricular and sulcal prominence. There are periventricular and deep white matter chronic small vessel ischemic changes. Tiny bilateral basal ganglial hypodensities likely representing sequela of remote lacunar infarcts. There is intracranial internal carotid artery atherosclerosis. Skull and face: Calvarium and visualized facial bones appear intact, without suspicious lesions. Sinuses: Visualized sinuses and mastoids are clear. IMPRESSION: CT head without acute intracranial abnormalities. Age-related senescent changes with sequela of chronic small vessel ischemic disease. If there is persistent or high clinical suspicion for acute cerebrovascular ischemia/stroke, more sensitive evaluation with brain MRI can be considered. Dictated by: Rafat Alicia M.D. on 06/26/2018 at 13:19 Approved by: Rafat Alicia M.D. on 06/26/2018 at 13:21 ECG Data Attestation: I personally reviewed and interpreted this ECG as follows: Interpretation: Sinus rhythm with a rate of 72 P are 182 QRS 86 and QTC of 438. No ST changes appreciated. MDM Narrative Medical decision making narrative: The patient has some mild improvement in symptoms but still has some symptoms present. Discussed with patient and I am personally unsure if we should give tPA or withhold. Patient and are also unsure, consulted with ck stroke and Dr. Trisha Astudillo. She felt that she would like to see the patient [id number] via tele Stroke evaluated the patient and it was decided not to give tPA as patient was continuing to improve. Patient was sent for CTA, there was some narrowing of the proximal right vertebral artery which might be related to some stenosis versus tortuous segment of the vessel. Patient continues to improve. Spoke with Dr. Astudillo from neurology at [facility] and reviewed CTA, images were reviewed at length. Multiple areas of intracranial plaque, 90 days of asa 81mg and plavix 70 if no risk of bleeding 40mg atorvastatin. F/U neurology whether locally or through [facility]. Recommends ECHO and tele, MRI and risk factors. If patient worsens Dr. Astudillo asks to call back. Spoke with Dr. Gilbert, discussed neurology recommendations and he accepts. Discharge Plan Departure Patient Disposition: Admitted as Observation Clinical Impression: Brain TIA Discharge Date/Time: 06/26/18 16:50 Interventions: ED Discharge Assessment Last Done: 06/26/18 16:50 Admit Date/Time: 06/26/18 16:34 Admit Provider: Jarad Gilbert
--- NOTE | 2018-06-26 13:59 | DI.CT.S_ITS ---
PROCEDURE: CT ANGIO HEAD AND NECK INDICATIONS: facial droop. resolved, ? confusion TECHNIQUE: Pre-contrast 4.5 mm thick sections acquired from the foramen magnum to the vertex. After the administration of intravenous contrast, 1 mm thick sections acquired from the aortic arch through the [place]. Post-contrast 4.5 mm thick sections then re-acquired from the foramen magnum to the vertex. 3-dimensional zzdukrd-ngrqlgejy-mlacnmgold (MIP) and/or volume rendering reformats were acquired of the central intracranial vasculature and neck separately. COMPARISON: None. FINDINGS: Image quality: Excellent. BRAIN: CSF spaces: Ventricles are normal in size and shape. Basal cisterns are patent. No extra-axial fluid collections. Brain: No midline shift. No intracranial bleeds or masses. Servin-white matter interface appears intact. No suspicious enhancement. Skull and face: Calvarium and facial bones appear intact, without suspicious lesions. Orbits appear normal. Sinuses: Sinuses and mastoids are clear. HEAD CT ANGIOGRAPHY: Anterior circulation: Intracranial internal carotid arteries are normal in size and flow. The right A1 segment of the anterior cerebral artery is not visualized. There is suggestion of a diminutive A1 segment versus congenital absence. The right anterior cerebral artery otherwise appears to be supplied off the left anterior cerebral artery. The flow within the paired distal anterior cerebral arteries is normal and symmetric. The flow within the middle cerebral arteries is normal and symmetric. Atherosclerotic plaques are noted in the cavernous segments of the bilateral internal carotid arteries without hemodynamically significant stenosis. No aneurysms are seen. Posterior circulation: Visualized portions of the vertebral arteries demonstrate normal caliber, and join to form a normal appearing basilar artery. Flow within the posterior cerebral arteries is normal and symmetric. No aneurysms are seen. NECK CT ANGIOGRAPHY: Carotid system: The great vessels demonstrate a conventional anatomy as they arise from the aortic arch. The origins of the common carotid arteries appear patent. There are atherosclerotic calcifications in the bilateral bifurcation without hemodynamically significant stenosis. The common carotid arteries demonstrate normal caliber and courses. The bifurcation regions are both widely patent. The internal carotid arteries demonstrate normal calibers and courses. Posterior circulation: The origins of the left vertebral artery is widely patent. There is mild narrowing versus a tortuous segment of the proximal right vertebral artery. The more superior extracranial portions of both vertebral arteries also demonstrate normal courses and calibers. They join to form a normal appearing basilar artery. Soft tissues: Visualized neck soft tissues demonstrate no suspicious abnormalities. Bones: No suspicious bony lesions. Severe multilevel cervical spondylosis most severe at C4-5 and C5-6. IMPRESSION: 1. 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 2. Atherosclerotic disease involving the carotid bifurcation and cavernous segments of the internal carotid arteries without hemodynamically significant stenosis. 3. Narrowing of the proximal right vertebral artery which may be related to stenosis versus a tortuous segment of the vessel. Other chronic findings as above. Any quantitative measurements of stenosis were performed using NASCET criteria. Dictated by: Rafat Alicia M.D. on 06/26/2018 at 15:22 Approved by: Rafat Alicia M.D. on 06/26/2018 at 15:37
--- NOTE | 2018-06-26 14:16 | PC.NURSE ---
[place] tele conference neurolgist consult being done.
[2018-06-26] MEDS: ASPIRIN 81 MG TAB 324 MG PO (15:04)
[2018-06-26] MEDS: SODIUM CHLORIDE 0.9% 1,000 ML 150 ML IV (15:05)
--- NOTE | 2018-06-26 16:56 | DI.ECHO.S_ITS ---
[facility] +---------+ : : [address] : : : : [id number] : : : : Phone: [phone]+ Echocardiogram Report + + :Name: SANDRA BRYSON Study Date: 06/27/2018 Height: 62 in : :[facility] Weight: 119 lb: : Gender: Female BSA: 1.5 m2 : :: 1935 Age: 82 yrs : :Reason For Study: TIA : :Ordering Physician: Juanis : :Hospitalist Performed By: Chauncey Angel : :Referring: RADHA CHEN R : + + Interpretation Summary The left ventricle is normal in size. The ejection fraction is estimated to be 65-70%. Left ventricular wall motion is normal. Diastolic parameters suggest a relaxation abnormality of the left ventricle, consistent with probable normal filling pressures. The right ventricle is normal in size and function. The right ventricular systolic pressure is estimated to be at least 26 mmHg based on an estimated right atrial pressure of 3 mm Hg. The left atrial size is normal. The right atrium grossly appears normal in size. There is no significant valvular heart disease. The ascending aorta is mildly enlarged. No findings on transthoracic echocardiogram that would suggest cardiac embolic source for TIA. Procedure: A two-dimensional transthoracic echocardiogram with color flow and Doppler was performed. The study quality was technically adequate. There is no prior echocardiogram noted for this patient. The patient was in normal sinus rhythm during the exam. Left Ventricle: The left ventricle is normal in size. There is normal left ventricular wall thickness. The ejection fraction is estimated to be 65-70%. Left ventricular wall motion is normal. Diastolic parameters suggest a relaxation abnormality of the left ventricle, consistent with probable normal filling pressures. Right Ventricle: The right ventricle is normal in size and function. Atria: The left atrial size is normal. The right atrium grossly appears normal in size. The interatrial septum is intact with no evidence for an atrial septal defect. Mitral Valve: The mitral valve is normal. There is trace mitral regurgitation. Aortic Valve: The aortic valve is normal in structure and function. No aortic regurgitation is present. Tricuspid Valve: The tricuspid valve is normal. There is mild tricuspid regurgitation. The right ventricular systolic pressure is estimated to be at least 26 mmHg based on an estimated right atrial pressure of 3 mm Hg. Pulmonic Valve: The pulmonic valve is not well visualized. There is a trace or physiologic amount of pulmonic regurgitation. There is no significant valvular heart disease. Great Vessels: The aortic root is normal size. The ascending aorta is mildly enlarged. The pulmonary is not well visualized. The IVC is of normal diameter and collapses greater than 50% with a sniff. This suggests a low right atrial pressure of 3 mm Hg. Pericardium/ Pleura There is no pericardial effusion. There is no pleural effusion. MMode/2D Measurements & Calculations LVIDd: 3.9 cm LVOT diam: 1.9 cm LVIDs: 2.6 cm Ao root diam: 3.0 cm FS: 33.6 % asc Aorta Diam: 3.4 cm EPSS: 0.60 cm Ao Arch Diam (Prox Trans): 2.5 cm IVSd: 0.73 cm LVPWd: 0.73 cm LV gonzalez. diameter/BSA (cm/m^2): 2.5 LV sys. diameter/BSA (cm/m^2): 1.7 TAPSE: 2.7 cm Doppler Measurements & Calculations Ao V2 max: 98.9 cm/sec LVOT Max Bharat: 86.9 cm/sec Ao V2 mean: 76.0 cm/sec LV V1 max P.0 mmHg Ao max P.9 mmHg LV V1 VTI: 21.1 cm Ao mean P.4 mmHg ANDERSON(I,D): 2.7 cm2 Ao V2 VTI: 21.3 cm ANDERSON(V,D): 2.4 cm2 sev ratio: 0.99 ANDERSON indexed to BSA (cm^2/m^2): 1.7 MV E max bharat: 51.6 cm/sec TR max bharat: 241.2 cm/sec MV A max bharat: 80.8 cm/sec TR max P.3 mmHg MV E/A: 0.64 PA V2 max: 88.6 cm/sec Med Peak E' Bharat: 3.8 cm/sec PA V2 mean: 58.0 cm/sec E/E' med: 13.6 PA mean P.5 mmHg Lat Peak E' Bharat: 7.9 cm/sec PA pr(Accel): 46.6 mmHg E/E' lat: 6.5 E/e' average: 10.1 MV dec time: 0.30 sec SV(LVOT): 56.7 ml Reading Physician:01:50 PM
--- NOTE | 2018-06-26 17:20 | PC.NURSE ---
Late Entry for 1500- pt able to swallow sips of water w/o clearing throat, coughing, chocking. pt states has pre-existing dysphagia for last 1-5-2 yrs after the hospitalization in ICU (intubated). Pt also reports has R vision difficulty for last a year or so.
--- NOTE | 2018-06-26 17:54 | SLP.IPNOTE ---
order received for ellie robert. Pt passed nursing swallowing screen. Will follow up with pt Thursday
--- NOTE | 2018-06-26 18:42 | DI.MRI.S_ITS ---
PROCEDURE: MR STROKE Pre- and post-contrast brain MRI, non-contrast brain MR angiogram, pre- and postcontrast neck MR angiogram INDICATIONS: confusion, weakness, drooping face TECHNIQUE: Brain: Noncontrast axial T1 spin echo, axial T2 fast spin echo, sagittal and axial FLAIR, coronal T2 fast spin echo, axial gradient echo, axial diffusion and ADC through the brain. After the administration of contrast, axial 3D VIBE of the cranial vasculature and brain. Brain MRA: Non-contrast 3-D time of flight MR angiogram, with multiple grcvgxg-asqqzvjbq-iiblfkqqzb (MIP) reformats performed. Neck MRA: Axial and sagittal TruFISP through the neck. Coronal dynamic MR angiogram during administration of contrast in the arterial and venous phases, with 3-dimenstional hssueff-yvcgizcyl-ltsmkrffgb (MIP) reformats constructed from subtraction images. COMPARISON: None. FINDINGS: Image quality: Excellent. BRAIN: CSF spaces: Ventricles are normal in size and shape. Basal cisterns are patent. No extra-axial fluid collections. Brain: No intracranial bleeds or mass effects. Servin-white matter interface is normal. Age-related volume loss and mild to moderate small vessel ischemic change. Diffusion weighted images show no acute ischemic insults. Brainstem appears normal. Normal intravascular flow voids are present. No abnormal intracranial enhancement. No hemosiderin deposition. Skull and face: Calvarial marrow signal is normal. Orbits appear normal. Sinuses: Sinuses and mastoids are clear. BRAIN MR ANGIOGRAM: No aneurysms. Atretic right A1 anterior sural artery segment, normal variant. Patent right P-comm. No patent left P-comm. There are bilateral posterior cerebral artery stenoses. There is a mild distal M1 segment right middle cerebral artery stenosis. There is right M2 segment stenotic disease. There is mild left MCA stenotic disease. No occlusions. No filling defects. NECK MR ANGIOGRAM: Carotids: Great vessels demonstrate a bovine arch anatomy as they arise from the aortic arch. The origins of the common carotid arteries appear patent. The calibers and courses of both common carotid arteries are normal. The bifurcation regions appear normal bilaterally. The internal carotid arteries demonstrate normal course and caliber. Posterior circulation: The origins of the vertebral arteries appear patent. More superior portions of both vertebral arteries demonstrate normal course and caliber, and join to form a normal appearing basilar artery. The left distal vertebral artery is dominant. The right distal vertebral artery is diminutive, normal variant. Miscellaneous: Subclavian arteries appear patent. Pre-contrast images through the neck show no soft tissue abnormalities. IMPRESSION: BRAIN MRI: Age related volume loss and mild to moderate small vessel ischemic change. No acute stroke, hemorrhage, or mass. BRAIN MR ANGIOGRAM: Multifocal intracranial arterial stenoses, including right M1 and M2 segment middle cerebral artery stenoses and bilateral posterior cerebral artery stenoses. NECK MR ANGIOGRAM: Bovine arch anatomy. No significant stenotic disease. Dictated by: Neftaly Kam M.D. on 06/27/2018 at 10:06 Approved by: Neftaly Kam M.D. on 06/27/2018 at 10:13
--- NOTE | 2018-06-26 20:28 | PM.HP.1 ---
History of Present Illness Date Patient Seen: 06/26/18 Time Patient Seen: 20:29 Chief complaint: DOESNT FEEL RIGHT Narrative: Patient presented to the [facility] Emergency Department on day of admission. She was last felt to be normal around 12:15 by her spouse. He knows that point she was having a drooping of her eyelids and her face on the right side. She seem to be having some trouble with her speech and her thought processes by his and her report. She had difficulty cooking food in the kitchen. At that point patient was brought to the emergency department. Patient herself reports feeling as though she was looking through a fog and has some difficulty thinking. Does not have a lot more recollection. As I speak to her she says her thinking is mostly back to normal but there is still something off on a vague and nonspecific way Patient was initially evaluated as a possible stroke and as evaluation was undergoing she began to have significant improvement. By the time her evaluation in the emergency department was complete she was much improved Patient with a little bit of a headache and feeling like her thinking is in a fog. Patient did not have any difficulty with ambulation or able to get in and out of the car with any difficulty. Denies any numbness or specific weakness. ER coordinated her care with the [facility] Stroke [facility]. Imaging was performed and neurologist at [facility] suggested That she was not a tPA candidate as she was improving. There was some narrowing of her proximal right vertebral artery on CT angiography, and evidence of plaquing elsewhere within the cranium. Stroke center neurologist recommended aspirin and Plavix for 90 days and atorvastatin for risk lowering. She also needs cardiac workup for arrhythmia and possible cardiac source of emboli with echocardiography and MRI for more definitive imaging of her [employer]. Patient has history of hypertension and hypothyroidism but has not been seen recently by her PCP. Appears last visit was April 2017 and last lab work for thyroid evaluation etc was also approximately 1 year ago. Patient had issues with her GI tract at the end of 2018. Was evaluated by GI in [place], but those records are not available at the time this dictation. Patient's family reports questionable history of dementia, which patient adamantly refuses to consider as a possibility and in fact has fired several physicians over this discussion in the past. Patient's family also reports possible issues with alcohol abuse and potentially even opiate abuse. Reviewing her history in the prescription monitoring system there are no entries for any controlled substances. Patient History Medical History Essential hypertension (Chronic) Acquired hypothyroidism (Chronic) GERD with esophagitis (Chronic) Anxiety (Chronic) Surgical History Status post hysterectomy Family History Mother Colon cancer Social History household members: spouse Smoking Status: Never smoker Family & Social History Family History Mother Colon cancer Social History: household members spouse Prior Living Arrangements House Safety & Behavioral: Feels Safe in Current Yes Environment Been Physically Hurt or No Threatened By a Person Suicidal Ideation Description None Suicide Plan Description No Plan Tobacco & Substance use: Smoking Status Never smoker alcohol intake frequency a few times a month Substance Use Type does not use Meds Home Medications Medication Instructions Recorded Confirmed Type [B FIFTY COMPLEX] 1 mg PO DAILY #0 09/10/07 06/26/18 History metoprolol succinate ER 25 mg 25 mg PO QDAY #90 tab 06/08/18 06/26/18 Rx tablet,extended release 24 hr levothyroxine [Synthroid] 88 mcg PO DAILY 06/26/18 06/26/18 History Allergies Allergy/AdvReac Type Severity Reaction Status Date / Time RAYMUNDO Inhibitors Allergy Severe RASH Verified 06/26/18 13:28 [RAYMUNDO INHIBITORS] lisinopril [LISINOPRIL] Allergy Severe Rash Verified 06/26/18 13:28 Sulfa (Sulfonamide Allergy Severe RASH Verified 06/26/18 13:28 Antibiotics) [SULFA (SULFONAMIDE ANTIBIOTICS)] Review of Systems Constitutional Constitutional: Denies excessive sweating, Denies fever(s), Denies headache(s), Denies weakness, Denies weight gain and Denies weight loss Eyes Eyes: Denies change in vision, Denies itchy eyes, Denies loss of vision and Denies other visual disturbances ENT Ears, Nose, Mouth, and Throat: No difficulty swallowing, No headache(s) and No neck pain Cardiovascular Cardiovascular: Denies chest pain, Denies fainting, Denies fast heart rate, Denies irregular heart rhythm, Denies rapid, pounding, or irregular heartbeat, Denies shortness of breath, Denies shortness of breath with activity and Denies slow heart rate Respiratory Respiratory: Denies dyspnea and Denies dyspnea on exertion Gastrointestinal Gastrointestinal: Denies abdominal pain, Denies bloating, Denies change in bowel habits, Denies change in stool character, Denies dysphagia, Denies nausea, Denies vomiting and Denies hematemesis Genitourinary Genitourinary: Denies hematuria, Denies urinary frequency and Denies difficulty voiding Musculoskeletal Musculoskeletal: Denies abnormal gait, Denies myalgias, Denies arthralgias, Denies limited range of motion and Denies neck pain Integumentary/Breasts Skin/Breast: Denies bleeding lesions, Denies change in pigmentation, Denies changing lesions, Denies new lesions, Denies rash, Denies skin swelling, Denies sores and Denies jaundice Neurologic Neurologic: Denies abnormal gait, Denies behavioral changes, Denies syncope, Denies headache(s), Denies loss of vision and Denies weakness Psychiatric Psychiatric: Denies behavioral changes, Denies change in appetite, Denies auditory hallucinations, Denies mood swings and Denies suicidal ideation Endocrine Endocrine: Denies excessive sweating and Denies palpitations Hematologic/Lymphatic Hematologic/Lymphatic: Denies easy bleeding, Denies easy bruising and Denies lymphadenopathy Allergic/Immunologic Allergic/Immunologic: Denies itchy eyes Exam Vital Signs (past 8 hours): - 06/26/18 13:28 06/26/18 13:30 06/26/18 14:00 Temperature 98.0 F Pulse Rate 81 74 72 Respiratory Rate 14 16 17 Blood Pressure 162/59 H Blood Pressure [Right Arm] 167/71 H 155/66 H Pulse Oximetry 99 100 100 06/26/18 14:45 06/26/18 15:00 06/26/18 16:55 Temperature 97.8 F Pulse Rate 77 72 74 Respiratory Rate 16 16 16 Blood Pressure 162/93 H Blood Pressure [Right Arm] 162/60 H 134/71 Pulse Oximetry 99 100 100 Oxygen Delivery Method Room Air Oxygen Flow Rate 0 Const General: cooperative, healthy appearing, comfortable, well developed and well groomed Nutritional Appearance: well nourished Orientation: alert, awake and oriented x3 HENMT Head: normocephalic, atraumatic, No cyanosis of lips/distal nose, No raccoon eyes and No periorbital ecchymosis Ears: hearing grossly normal bilaterally and external ears normal Nose: external nose normal and nares normal Face and sinus: normal facial exam and face symmetric Mouth: oral mucosae normal, lip normal and tongue normal Eyes Alignment and Position: alignment normal Periorbital: periorbital findings normal Eyelids: eyelids normal Conjunctivae: conjunctivae normal Sclera: sclerae normal Cornea: corneas normal Pupils: PERRL EOM: EOM intact bilaterally Neck Neck: normal visual inspection, full ROM, trachea midline and No anterior neck swelling Thyroid: not diffusely enlarged Carotids: normal carotid upstroke Lymphatic: No lymphadenopathy Chest Chest: normal inspection of the chest, No crepitus and No tenderness Breast inspection: normal inspection of the breasts Resp Effort & Inspection: normal respiratory effort, able to speak in complete sentences, no audible wheezes, no cough, no retractions and not tachypneic Auscultation: clear to auscultation bilaterally, no rales, no rhonchi, no wheezes and no rubs Percussion: percussion normal Tactile Fremitus: tactile fremitus absent Cardio Palpation: normal PMI Rate: regular rate Rhythm: regular rhythm Heart Sounds: S1 normal, S2 normal and normal, physiologic split S2 Bruits: no carotid bruits Pulses: brachial pulses present and radial pulses present GI Inspection: normal to inspection Palpation: soft and no hepatosplenomegaly Percussion: normal to percussion Auscultation: normal bowel sounds Back/Spine/Pelvis Back: No CVA tenderness Cervical Spine: normal cervical lordosis Thoracic/Lumbar Spine: thoracic and lumbar spine normal to inspection Skin General: no rashes or lesions noted, No excoriations, No induration, No jaundice, No mottling and No petechiae Lesions: no lesions (no worrisome/abl lesions) Rashes: no rashes Trauma: no lacerations or abrasions Wounds: no wounds Hair: normal Neuro General: alert, awake, oriented x3, tone normal and normal light touch, pain and propioception Cranial Nerves: CN's II-XI intact bilaterally Cognition: normal cognition Speech: speech normal Motor: muscle tone normal throughout Sensory Exam: no sensory deficits noted DTR's: Rt Biceps: 2+, Lt Biceps: 2+, Rt Brachioradialis: 2+, Lt Brachioradialis: 2+, Rt Patellar: 2+ and Lt Patellar: 2+ Extrem General: normal to inspection, no clubbing, cyanosis or edema and No calf tenderness Right upper extremity: normal to inspection Left upper extremity: normal to inspection Right lower extremity: normal to inspection Left lower extremity: normal to inspection Psych Appearance: grossly normal Mental Status: mental status grossly normal Speech and Movement: speech and movement normal and speech clear Mood: congruent mood Affect: normal affect Attitude: cooperative Thought Process: normal Thought Content: normal Judgment: judgment good Objective Labs Result Diagrams: 06/26/18 13:15 06/26/18 13:15 Labs: Laboratory Results - last 24 hr 06/26/18 06/26/18 06/26/18 13:15 13:15 13:15 WBC 6.5 RBC 4.09 Hgb 13.3 Hct 39.4 MCV 96.3 MCH 32.6 MCHC 33.9 RDW 12.4 Plt Count 163 Neut % (Auto) 58.6 Lymph % (Auto) 29.8 [place] % (Auto) 9.7 Eos % (Auto) 1.7 L Baso % (Auto) 0.2 Neut # (Auto) 3800 Lymph # (Auto) 1900 [place] # (Auto) 600 Eos # (Auto) 100 Baso # (Auto) 0 PT 11.5 INR 1.0 APTT 26 L Sodium 136 L Potassium 3.6 Chloride 103 Carbon Dioxide 25 BUN 21 H Creatinine 0.70 Estimated GFR > 60.0 BUN/Creatinine Ratio 30.0 H Glucose 107 Calcium 9.4 Troponin I < 0.012 Assessment & Plan Assessment & Plan narrative: 1. Patient with presumably a TIA. At this point she has been evaluated carefully and is much improved and by expert evaluation via tele stroke does not warrant either invasive intervention or tPA at this point. Continue with conservative management including anti-platelet agents and lipid-lowering therapy for risk reduction. Patient will be monitored on telemetry for evidence of cardiac dysrhythmia that could lead to thromboembolic issues. Patient will have echocardiogram performed for same reason. Patient will undergo MRI scanning of the brain 2. Hypertension-continue usual meds 3. Hypothyroidism-continue usual meds and check TSH in the morning since it has not been done since June 2017. 4. Question dementia-I will add heavy metal screen and VDRL to her labs. She will have the MRI done of course for other reasons but that will also be part of a dementia workup. 5. history possible alcohol abuse-will have lorazepam available as needed and if need be put her on a CIWA protocol, which does not appear to be necessary at this point anyway. Scores NIHSS Level of Conciousness: Alert, keenly responsive Ask month/age: Answers both questions correctly. Open/close eyes, close hand: Performs both tasks correctly Best gaze horizontal: Normal Visual mckay: No visual loss Facial palsy: Normal symetrical movement Left arm drift: No drift for full 10 sec Right arm drift: No drift for full 10 sec Left leg drift: No drift for full 10 sec Right leg drift: No drift for full 10 sec Limb ataxia: Absent Sensory on face/arms/legs: Normal, no sensory loss Best language: No aphasia, normal Dysarthria: Normal Extinction or inattention: No abnormality Total NIH Stroke scale score: 0 Quality VTE Deep Vein Thrombosis/Pulmonary Embolism Present on Admission: No
[2018-06-26] MEDS: ATORVASTATIN 20 MG TABLET 40 MG PO (20:35)
[2018-06-26] MEDS: ZOLPIDEM 5 MG TABLET 10 MG PO (21:48)
[2018-06-26 22:28] LABS: Urine Amphetamines Negative (Negative); Urine Barbiturates Negative (Negative); Urine Benzodiazepines Negative (Negative); Urine Cocaine Negative (Negative); Urine MDMA Negative (Negative); Urine Methadone Negative (Negative); Urine Methamphetamines Negative (Negative); Urine Morphine/Opi cutoff 2000 Negative (Negative); Urine Oxycodone Negative (Negative); Urine Phencyclidine Negative (Negative); Urine Tetrahydrocannabinol Positive (Negative); Urine Tricyclic Antidepressant Negative (Negative)
--- NOTE | 2018-06-26 22:28 | PC.ADMIT ---
Addendum entered by Leia Steinberg R.N. 06/26/18 22:44: pt does report that she uses cbd drops to help sleep at night so she asked for a sleep aid. md in to see pt and orders received. Original Note: Admission Note: arrived 1655. Pt had family at bedside. , syl rolon. step daughters. olivia, one of the step daughters) who happens to be a physician. Pt oriented to room and hospital procedures. does take a minute to answer some orientation questions. cooperative with care. nih done and charted. pt reports that she has baseline issues swallowing. and feels that it has gotten worse over time. repotrts coughing and clearing throat after any swallowing. reports she was intubated and in the ICU (not sure which hospital) and after extubation has never had the same swallowing functions as before she had to be intubated. also reports baseline weakness to the right side. some what of an ok historian but dtr olivia reports pt has baseline mild dementia and also reports that she takes quite a few narcotics that apparently the does not know about. husbands knows about the mild dementia. but is oblivious to narcotic use. olivia reported to us that pt fires people if they try to work her up for any dementia or cognitive studies. she also said that the patient can become aggressive and agitated if people start asking her about dementia and the like. Pt has bracelets and a large ring on left arm and bracelets on right arm. refused to place anything in safe. step dtr olivia reported that pt hides things from . believes that ETOH abuse has been ongoing and she feels that she also hides that from her as well. bed alarm on. side rails upx3. belongings and call light within reach. will continue to monitor pt for safety.
[2018-06-27] VITALS (7 sets, daily range): BP systolic 125–179; BP diastolic 62–85; PULSE 72–93; RESP 16; TEMP 36.3–37.2; O2SAT 95–100
--- NOTE | 2018-06-27 00:53 | PC.NURSE ---
Pt is A&Ox2, when asked if she knew where she was it was a garbled word salad. NIH of 3, Tele is NS, Lung sounds clear, VSS. Pt is also took ambien w/ evening medications.
[2018-06-27] MEDS: LEVOTHYROXINE 75 MCG TABLET PO (06:05)
[2018-06-27 06:26] LABS: Cholesterol 178 mg/dL (140-199); HDL Cholesterol 56 mg/dL (40-60); LDL Cholesterol Calculated 109 mg/dL (<100); Triglycerides 63 mg/dL (35-150)
[2018-06-27 06:59] LABS: TSH w/ Reflex to FT4 0.02 uIU/mL (0.47-4.68)
[2018-06-27 07:25] LABS: Free T4, Direct Thyroxine 1.53 ng/dL (0.78-2.19)
--- NOTE | 2018-06-27 08:45 | CM.DANOTE ---
Discharge Planning/Care Management DCP: assessment: case received, EMR reviewed and met with pt. Introduced self and role. Pt was just about to walk in [place] with PT so agreed to come back later prn. Pt reports she thinks she might be able to go home today. Observed pt walking with PT without assistive device and at SBA. Pt is an 82 year old female who admitted yesterday late afternoon to care of FMA: Dr. Gilbert. PCP: FMA: Dr. Reddy Moore Medicare and [facility]. I&C TECH was ordered: see that she will see pt Thursday if need be and she notes that pt did pass the initial nursing swallow test. Full dx and tx plan are in process. Anticipate Dr. Gilbert will be in later today to see pt. Will follow prn for d/c issues and options. Pt does live with her Ольга in [place]. (his # :[phone]) Advanced directive, confirm from FAMILY Start: 06/26/18 18:18 Freq: Q24H Status: Active Protocol: Document 06/26/18 17:00 KJ (Rec: 06/26/18 18:53 KJ [id number]) Advance Directive, confirm on record Time 18:19 Person contacted ольга Copy received No Copy received No Advanced directive available on record No Document 06/26/18 18:18 KJ (Rec: 06/26/18 18:19 KJ [id number]) Advance Directive, confirm on record Time 18:19 Person contacted ольга Copy received No CM Discharge Assessment Start: 06/27/18 08:44 Freq: Status: Active Protocol: Document 06/27/18 08:44 ITV (Rec: 06/27/18 08:45 ITV [id number]) Discharge Planning Assessment Advance Directives? Yes Advance Directives on File No History Provided By Patient Medical Record Has Patient been admitted in last 30 No days? Prior Living Arrangements House Household Members spouse Whiteboard Updated in Patient Room with Yes name and ext. 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
--- NOTE | 2018-06-27 09:12 | P.PN_ITS ---
Subjective Date Patient Seen: 06/27/18 Time Patient Seen: 09:10 Interval history: Patient had some rest overnight. Nursing notes suggest she had some garbled speech after she was given Ambien (at her request for persistent insomnia). This morning she seems completely at baseline at least exactly the same as when I saw her yesterday Blood pressure is a bit elevated No dysrhythmias on telemetry Exam Vital Signs (past 8 hours): - 06/27/18 05:40 06/27/18 07:30 06/27/18 08:27 Temperature 98.4 F 97.3 F L Pulse Rate 75 78 Respiratory Rate 16 16 Blood Pressure 125/62 179/75 H Pulse Oximetry 98 95 100 Oxygen Delivery Method Room Air Oxygen Flow Rate 0 Narrative Exam Narrative: Unchanged from previous Objective Labs Result Diagrams: 06/26/18 13:15 06/26/18 13:15 Labs: Laboratory Results - last 24 hr 06/26/18 06/26/18 06/26/18 13:15 13:15 13:15 WBC 6.5 RBC 4.09 Hgb 13.3 Hct 39.4 MCV 96.3 MCH 32.6 MCHC 33.9 RDW 12.4 Plt Count 163 Neut % (Auto) 58.6 Lymph % (Auto) 29.8 [place] % (Auto) 9.7 Eos % (Auto) 1.7 L Baso % (Auto) 0.2 Neut # (Auto) 3800 Lymph # (Auto) 1900 [place] # (Auto) 600 Eos # (Auto) 100 Baso # (Auto) 0 PT 11.5 INR 1.0 APTT 26 L Sodium 136 L Potassium 3.6 Chloride 103 Carbon Dioxide 25 BUN 21 H Creatinine 0.70 Estimated GFR > 60.0 BUN/Creatinine Ratio 30.0 H Glucose 107 Calcium 9.4 Troponin I < 0.012 Triglycerides Cholesterol LDL Cholesterol, Calc HDL Cholesterol TSH Free T4 Urine Opiates Screen Ur Oxycodone Screen Urine Methadone Screen Ur Barbiturates Screen U Tricyclic Antidepress Ur Phencyclidine Scrn Ur Amphetamines Screen U Methamphetamines Scrn Ur MDMA Scrn (Ecstasy) U Benzodiazepines Scrn Urine Cocaine Screen U Marijuana (THC) Screen 06/26/18 06/27/18 06/27/18 22:10 05:58 05:58 WBC RBC Hgb Hct MCV MCH MCHC RDW Plt Count Neut % (Auto) Lymph % (Auto) [place] % (Auto) Eos % (Auto) Baso % (Auto) Neut # (Auto) Lymph # (Auto) [place] # (Auto) Eos # (Auto) Baso # (Auto) PT INR APTT Sodium Potassium Chloride Carbon Dioxide BUN Creatinine Estimated GFR BUN/Creatinine Ratio Glucose Calcium Troponin I Triglycerides 63 Cholesterol 178 LDL Cholesterol, Calc 109 H HDL Cholesterol 56 TSH 0.02 L Free T4 1.53 Urine Opiates Screen Negative Ur Oxycodone Screen Negative Urine Methadone Screen Negative Ur Barbiturates Screen Negative U Tricyclic Antidepress Negative Ur Phencyclidine Scrn Negative Ur Amphetamines Screen Negative U Methamphetamines Scrn Negative Ur MDMA Scrn (Ecstasy) Negative U Benzodiazepines Scrn Negative Urine Cocaine Screen Negative U Marijuana (THC) Screen Positive H Assessment & Plan Assessment & Plan narrative: 1. TIA/CVA-patient evaluated by physical therapy. To have MRI and echo today. Continue to control blood pressure somewhat better. Is on anti-platelet therapy and statin therapy. Also was on Lovenox for VTE prophylaxis so even a bit more anticoagulation. Continue to monitor for alterations in symptoms 2. Hypothyroidism-TSH minimally suppressed but normal T4 this morning. No change in dose 3. Hypertension-will increase her metoprolol dose because of the persistent hypertension. Heart rate is been near 80 and so I think this really room for increased beta blockade Note: Greater than 30 minutes was spent evaluating the patient on the floor, including examining the patient, discussing clinical course with clinical and nursing staff, reviewing clinical course in the computer, preparing documentation and writing orders for continued management of care, discussing status with family as appropriate, reviewing plans for the next 24 hours with both patient/family and nursing staff as appropriate. Quality VTE Deep Vein Thrombosis/Pulmonary Embolism Present on Admission: No
--- NOTE | 2018-06-27 09:14 | PT.IIE ---
Surgical History (Last Reviewed 06/26/18 @ 20:55 by Jarad Gilbert MD) Status post hysterectomy Medical History (Last Reviewed 06/26/18 @ 20:55 by Jarad Gilbert MD) Essential hypertension (Chronic) Acquired hypothyroidism (Chronic) GERD with esophagitis (Chronic) Anxiety (Chronic) Physical Therapy Inpatient Evaluation/Re-Eval M1 PT/OT-IP Prior Functional Status Start: 06/27/18 08:52 Freq: NEEDED Status: Active Protocol: Document 06/27/18 08:53 NFW (Rec: 06/27/18 09:14 NFW [id number]) Medical Review Prior Functional Status Medical History Reviewed Yes Mobility and Gait Patient prior to admission independent in ambulation without need of assistive devices. Activities of Daily Living and IADL's Independent in all IADL's Prior Functional Level (Other details) Cooks for her and her , drives and does all the grocery shopping. Laundry and light cleanup around the house. 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 Walks her dog on a regular basis. Social History Household Members spouse Living Arrangements House Number of Floors (Floors) Two Floors Number of Stairs To Enter/Railing? None Home Environment Standard Height Toilet Walk in Shower Home Equipment Front Wheel Walker Grab Bars In Shower Additional Social History Comment Main hobby is reading. M2 PT-IP Current Condition Start: 06/27/18 08:52 Freq: NEEDED Status: Active Protocol: Document 06/27/18 08:53 NFW (Rec: 06/27/18 09:14 NFW [id number]) Physical Therapy Current Condition Current Condition Evaluation Date 06/27/18 Treatment Diagnosis TIA? Weight Bearing Status Weight Bearing Status Full Weight Bearing M3 PT-IP Subjective Start: 06/27/18 08:52 Freq: NEEDED Status: Active Protocol: Document 06/27/18 08:53 NFW (Rec: 06/27/18 09:14 NFW [id number]) Subjective Physical Therapy Visit Type Type Initial Evaluation Visit Start Time 08:15 Visit Stop Time 08:55 Total Visit Minutes 40 Number of ORDER PICKER Visits 0 Physical Therapy Visit Comments Patient Comments Patient states that her main concern is I want my to listen to me and quit dumping on me. Patient Goals Return to her home in [place]. Therapy Pain Assessment Pain When Pain Assessed At Rest Pain Present Pain Present Denied Pain M4 PT-IP Mobility and Gait Start: 06/27/18 08:52 Freq: NEEDED Status: Active Protocol: Document 06/27/18 08:53 NFW (Rec: 06/27/18 09:14 NFW [id number]) PT-Bed Mobility Assessment Rolling Type of Rolling Bilateral Level of Assist Independent Supine to Sit Supine to Sit Independent Sit to Supine Sit to Supine Independent Scooting Scooting to Edge of Bed Independent Scooting Up and Down in Bed Independent PT-Transfer Assessment Sit to and From Stand Sit to and from Stand Standby Assistance 1 Person Assistance Equipment Transfer Assistive Device None Orthotic/Prosthetic Devices or Brace: No Transfers Transfer Destination Bed Chair Transfer Ability Level of Assist Standby Assistance Comments Mobility Comments Patient able to perform all bed mobilities independently and with ease safely. Gait Assessment Gait Gait Assistance Required: Standby Assistance Distance (Feet) 220 Able to Maintain Weight Bearing Status Yes During Gait Assistive Devices Assistive Device Gait Belt Orthotic/Prosthetic Devices or Brace: No Gait Deviations General Gait Pattern Within Normal Limits Stair Climbing Assessment Evaluation Level of Assist On Stairs Standby Assistance 1 Person Assistance Devices Stair Climbing Assistive Devices Left Railing Right Railing Technique/Endurance Stair Climbing Direction Ascend and Descend Stair Climbing Technique Step Over Step Number of Steps Climbed 4 Query Text: Stair Climbing Set # Repetitions (reps) 1 Comments Stair Climbing Comments Up and down stairs with no hesitancy, using handrails appropriately. PT-Balance Assessment Sitting Balance and Reactions Static Sitting Balance Ability Normal Dynamic Sitting Balance Ability Normal Standing Balance and Reactions Static Standing Balance Ability Normal Dynamic Standing Balance Ability Normal Device Used none Balance Tests Single Limb Standing 3 seconds on right, 2 seconds on left Comments Other Balance Tests/Deviations/Treatment Bilateral, symmetrical : overhead reach in standing. Marching in place. Standing looking over each shoulder. Walking forward, backward and side to side. Standing and performing a 360 degree duckwater each direction. All performed well. Only difficulty was in side walking with the grapevine, had difficulty with comprehending and performing. M5 PT-IP Objective Assessments Start: 06/27/18 08:52 Freq: NEEDED Status: Active Protocol: Document 06/27/18 08:53 NFW (Rec: 06/27/18 09:14 NFW [id number]) Orientation Orientation/Cognition Level of Alertness Alert Orientation Name Month Date Year Day of Week Place Language Function Ability No Deficits Noted Memory Description No Deficits Noted Comments Pleasant, answered all questions appropriately. Comfortably shared information about herself and family. Gross Range of Motion Upper Extremity ROM Assessment Within Functional Limits Lower Extremity ROM Assessment Within Functional Limits Strength Upper Extremity Strength Assessment Within Functional Limits Lower Extremity Strength Assessment Within Functional Limits Coordination Assessment Gross Coordination Gross Coordination WNL Muscle Tone Muscle Tone WNL Yes M7 PT-IP Assessment and Plan Start: 06/27/18 08:52 Freq: NEEDED Status: Active Protocol: Document 06/27/18 08:53 NFW (Rec: 06/27/18 09:14 NFW [id number]) PT Summary Assessment and Plan Potential Rehabilitation Potential Excellent Status of Condition at Evaluation Stable Summary Progress Towards Goals Safe For Discharge Assessment Summary Patient high functioning physically and is safe for discharge home. Frequency of Treatment Frequency Of Treatment Discharge Recommendations To Nursing Amount of Assist Needed Standby Assistance 1 Person Assist Discharge Recommendations PT Discharge Recommendations Home
[2018-06-27] MEDS: SODIUM CHLORIDE 0.9% FLUSH 10 ML IV (10:25)
[2018-06-27] MEDS: CLOPIDOGREL 75 MG TABLET PO (10:26)
[2018-06-27] MEDS: METOPROLOL ER 50 MG TABLET PO (10:26)
[2018-06-27] MEDS: ASPIRIN EC 325 MG TABLET PO (10:26)
[2018-06-27] MEDS: ENOXAPARIN 40 MG/0.4 ML SYRINGE SUBCUT (10:26)
--- NOTE | 2018-06-27 16:08 | PC.NURSE ---
Evening shift, care assumed, pending discharge. Will continue to monitor. Discharge instructions given, pt verbalized understanding. Patient walked to private vehicle, accompanied by spouse and two nurses.
--- NOTE | 2018-06-28 08:18 | PM.DS.1 ---
History of Present Illness Chief complaint: DOESNT FEEL RIGHT Narrative: Patient presented to the [facility] Emergency Department on day of admission. She was last felt to be normal around 12:15 by her spouse. He knows that point she was having a drooping of her eyelids and her face on the right side. She seem to be having some trouble with her speech and her thought processes by his and her report. She had difficulty cooking food in the kitchen. At that point patient was brought to the emergency department. Patient herself reports feeling as though she was looking through a fog and has some difficulty thinking. Does not have a lot more recollection. As I speak to her she says her thinking is mostly back to normal but there is still something off on a vague and nonspecific way Patient was initially evaluated as a possible stroke and as evaluation was undergoing she began to have significant improvement. By the time her evaluation in the emergency department was complete she was much improved Patient with a little bit of a headache and feeling like her thinking is in a fog. Patient did not have any difficulty with ambulation or able to get in and out of the car with any difficulty. Denies any numbness or specific weakness. ER coordinated her care with the [facility]. Imaging was performed and neurologist at [facility] suggested That she was not a tPA candidate as she was improving. There was some narrowing of her proximal right vertebral artery on CT angiography, and evidence of plaquing elsewhere within the cranium. Stroke center neurologist recommended aspirin and Plavix for 90 days and atorvastatin for risk lowering. She also needs cardiac workup for arrhythmia and possible cardiac source of emboli with echocardiography and MRI for more definitive imaging of her [employer]. Patient has history of hypertension and hypothyroidism but has not been seen recently by her PCP. Appears last visit was April 2017 and last lab work for thyroid evaluation etc was also approximately 1 year ago. Patient had issues with her GI tract at the end of 2018. Was evaluated by GI in [place], but those records are not available at the time this dictation. Patient's family reports questionable history of dementia, which patient adamantly refuses to consider as a possibility and in fact has fired several physicians over this discussion in the past. Patient's family also reports possible issues with alcohol abuse and potentially even opiate abuse. Reviewing her history in the prescription monitoring system there are no entries for any controlled substances. Discharge Providers Date of admission: 06/26/18 16:34 Discharge Date: 06/27/18 Primary care physician: Tere Blakely MD Consults: 06/26/18 16:56 Consult to Discharge Planning Routine Comment: Consult to Occupational Therapy Evaluate & Treat Comment: Physician Instructions: Evaluate and treat Consult to Physical Therapy Evaluate & Treat Comment: Physician Instructions: Evaluate and Treat Consult to Speech Therapy Evaluate & Treat Comment: Physician Instructions: Evaluate and treat Discharge provider: Jarad Gilbert MD Summary Discharge Diagnosis: 1. Transient ischemic attack 2. Essential hypertension 3. Acquired hypothyroidism 4. Anxiety 5. Possible cognitive dysfunction Hospital Course: Patient presented with symptoms as outlined above and in the ER evaluation. Her symptoms resolved while being evaluated in the emergency department. She was seen in consultation via telemedicine stroke physicians at [facility] in [place]. She was not felt to have anything that and would benefit from invasive therapies nor tPA given she was improving. Recommendation was for to continue on dual anti-platelet therapy for at least 90 days and to start high-intensity statin therapy for risk reduction. This was started in the hospital. She was admitted and observed on telemetry and no dysrhythmias were identified. She had echocardiography performed prior to discharge which also did not show any significant abnormality or etiology for thrombus formation Patient had MRI of the brain performed prior to discharge and also no evidence of acute or subacute CVA or ischemia was identified Patient had some scattered vascular irregularities. Please see imaging reports for details Given that patient was asymptomatic it was elected to discharge her home with close outpatient follow-up Status at Discharge Cognitive/behavioral status at discharge: at baseline, oriented Functional status at discharge: independent ambulation Overall status at discharge: patient is back to baseline Exam Vital Signs (past 8 hours): Oxygen Delivery Method Room Air Oxygen Flow Rate 0 Objective Labs Result Diagrams: 06/26/18 13:15 06/26/18 13:15 Discharge Plan Discharge Plan Patient Disposition: Home Discharge comment: patient instructed to follow up with PCP regarding increased difficulty swallowing/swallow eval Discharge Med Rec/Prescriptions Prescriptions: New Cyclosporine 1 drop EYE-BOTH BID Qty: 5 RF: 1 metoprolol succinate 50 mg Tablet Extended Release 24 Hr 50 mg PO DAILY Qty: 30 RF: 3 clopidogrel 75 mg Tablet 75 mg PO DAILY Qty: 90 RF: 1 atorvastatin 40 mg tablet 40 mg PO DAILY Qty: 30 RF: 3 aspirin 81 mg tablet,delayed release (DR/EC) 81 mg PO DAILY Qty: 30 RF: 12 Continued [B FIFTY COMPLEX] 1 mg PO DAILY Qty: 0 RF: 0 levothyroxine 88 mcg tablet 88 mcg PO DAILY RF: 0 Discontinued metoprolol succinate [Toprol XL] 25 mg tablet extended release 24 hr 25 mg PO QDAY Qty: 90 RF: 1 Follow up/Referrals: Tere Blakely MD [Primary Care Provider] - 2 Weeks (Patient to call for appointment) Provider Discharge Instructions Diet: Diet as Tolerated Visit Report/Discharge Packet Instructions: Transient Ischemic Attack, Cyclosporine Ophthalmic, Aspirin, Atorvastatin (By mouth), Clopidogrel (By mouth) Discharge Data Primary Care Provider: Tere Blakely Attending Provider: Jarad Gilbert Admit Date/Time: 06/26/18 16:34 Discharges patient from system. Discharge Date/Time: 06/27/18 16:00 Quality VTE Deep Vein Thrombosis/Pulmonary Embolism Present on Admission: No
[2018-07-04 11:54] LABS: Arsenic < 2 mcg/L (< 23); Lead, Blood 4 mcg/dL (< 5)
[2018-07-05 15:12] LABS: Mercury, Blood < 2
== END 2018-06-27 16:00 | disposition home or self-care (01) ==
LOC: ED 16:34 → AC 16:35
PROVIDERS: Admitting Provider Internal Medicine; Emergency Provider Emergency Medicine; PCP Family Medicine; Visit Provider Internal Medicine
DX: G45.9 Transient cerebral ischemic attack, unspecified (principal); R29.818 Other symptoms and signs involving the nervous system; I10 Essential (primary) hypertension; E03.9 Hypothyroidism, unspecified; F41.9 Anxiety disorder, unspecified
CPT/HCPCS: 36415; 70450; 70496; 70498; 70548; 70553; 71045; 80048; 80061; 80305; 81003; 82962; 83825; 84439; 84443; 84484; 85025; 85610; 85730; 93005; 93306; 96360; 96361; 96372; 97116; 97161; 97530; 99217; 99219; 99283; 99285; 99291; G0378; J1650; Q9967

== ENCOUNTER → 2018-12-24 10:59 | Outpatient (CLI) | payer MEDICARE, OTHER, SELFPAY ==
[2018-06-26 16:55] VITALS: BMI 21.7
--- NOTE | 2018-12-24 | DI.MRI.S_ITS ---
PROCEDURE: MR CERVICAL SPINE WO CON INDICATIONS: Cervicalgia TECHNIQUE: Noncontrast sagittal T1 spin echo and T2 fast spin echo, sagittal STIR, foraminal oblique sagittal T2 fast spin echo, and axial gradient echo or T2 fast spin echo through the cervical spine. COMPARISON: [facility], CR, XR CERVICAL SPINE 2 OR 3 VIEWS, 11/30/2018, 10:29. FINDINGS: Image quality: Excellent. Alignment and Curvature: There is loss of normal cervical lordosis. Moderate kyphosis at C3-C6. There is mild right one retrolisthesis of C4 on C5-C5 on C6. Bone Marrow: Marrow demonstrates normal overall signal. There is moderate reactive signal within the endplates adjacent to the C4-C5 and C5-C6 intervertebral discs. Mild reactive signal within the endplates adjacent to the C3-C4 and C6-C7 intervertebral discs. Spinal Cord: Visualized spinal cord has normal size and signal. No cerebellar tonsillar herniation. Paraspinous Soft Tissues: No paravertebral masses. Prevertebral soft tissues are normal in thickness. C2-C3: Moderate disc desiccation. Mild facet and uncovertebral hypertrophy bilaterally. Minimal canal stenosis. Minimal foraminal stenosis bilaterally. C3-C4: Moderate disc desiccation. Mild diffuse disc bulge. Mild facet and uncovertebral hypertrophy bilaterally. Moderate canal stenosis. Moderate right and mild left foraminal stenosis. C4-C5: Severe disc height loss and desiccation. Moderate diffuse disc bulge/osteophyte. Moderate facet and uncovertebral hypertrophy bilaterally. Severe canal stenosis. Mild cord flattening. Severe left and moderate right foraminal stenosis. Left C5 nerve root compression. C5-C6: Moderate disc height loss and desiccation. Moderate diffuse disc bulge. Moderate facet and uncovertebral hypertrophy bilaterally. Moderate canal stenosis. Severe left and moderate right foraminal stenosis. Left C6 nerve root compression. C6-C7: Moderate disc desiccation. Mild diffuse disc bulge. Mild facet and uncovertebral hypertrophy bilaterally. Mild canal stenosis. Mild bilateral foraminal stenosis. C7-T1: Moderate disc desiccation. Mild diffuse disc bulge. Mild facet and uncovertebral hypertrophy bilaterally. Mild canal stenosis. Mild bilateral foraminal stenosis. IMPRESSION: 1. Multilevel degenerative disc and facet disease, as well as uncovertebral hypertrophy. 2. Multilevel canal stenoses, worst at C4-C5, where there is mild cord flattening present. 3. Multilevel foraminal stenoses, worst at C4-C5 and C5-C6, where there is associated intraforaminal nerve root compression. Recommend correlation with clinical symptoms to ascertain relevance of these findings. Dictated by: Mark Anthony Huntley M.D. on 12/24/2018 at 12:49 Approved by: Mark Anthony Huntley M.D. on 12/24/2018 at 12:54
== END ==
PROVIDERS: PCP Family Medicine; Visit Provider Orthopaedic Surgery
DX: M50.31 Other cervical disc degeneration, high cervical region (principal); M48.02 Spinal stenosis, cervical region
CPT/HCPCS: 72141

== ENCOUNTER 2019-10-13 08:57 | Emergency (ER) | payer MEDICARE, SELFPAY ==
[2018-06-26 16:55] VITALS: BMI 21.7
[2019-10-13 09:03] VITALS: BP 176/88; PULSE 64; RESP 14; TEMP 37; O2SAT 98; BMI 19.5
--- NOTE | 2019-10-13 09:13 | ED.ABDPAIN ---
HPI - Abdominal Pain General Chief Complaint: Abdominal Pain Stated Complaint: had appendectomy causing issues Time Seen by Provider: 10/13/19 09:13 Source: patient Mode of arrival: Ambulatory Limitations: no limitations History of Present Illness HPI narrative: Patient is an 84-year-old female who presents with ongoing abdominal pain. She states that it has been going on for about 2-3 months. 4 years ago she had a ruptured appendix which require an open appendectomy and wound care following. She thinks she has had discomfort ever since. In fact she had a colonoscopy in 2018 for ongoing issues. She says she has diarrhea 3 times a day for the last 2-3 months. She has pain on the right and left side she feels like something is pulling. She says the suture ruptured at some point. She denies any fever chills or nausea or vomiting. MD complaint: abdominal pain Onset (ago): month(s) Pain Consistency: constant Related Data Home Medications Medication Instructions Recorded Confirmed [B FIFTY COMPLEX] 1 mg PO DAILY #0 09/10/07 07/16/18 levothyroxine 88 mcg PO DAILY 06/26/18 07/16/18 Previous Rx's Medication Instructions Recorded aspirin 81 mg PO DAILY #30 tab 06/27/18 ranitidine HCl 150 mg capsule 150 mg PO DAILY #90 cap 07/16/18 trazodone 50 mg tablet 50 mg PO BEDTIME PRN #30 tab 09/10/18 famotidine 40 mg tablet 40 mg PO DAILY #90 tab 02/23/19 clopidogrel 75 mg tablet See Rx Instructions .ROUTE 04/13/19 .COMPLEX #90 tablet Cyclosporine 1 drop EYE-BOTH BID #5 ml 04/22/19 metoprolol succinate 50 mg See Rx Instructions .ROUTE 04/22/19 tablet,extended release 24 hr .COMPLEX #30 tablet cyclosporine 0.05 % eye drops in a 1 drp EYE-BOTH BID #30 ea 06/10/19 dropperette atorvastatin 40 mg tablet 40 mg PO DAILY #30 tab 07/18/19 Allergies Allergy/AdvReac Type Severity Reaction Status Date / Time RAYMUNDO Inhibitors Allergy Severe RASH Verified 10/13/19 09:10 [RAYMUNDO INHIBITORS] lisinopril [LISINOPRIL] Allergy Severe Rash Verified 10/13/19 09:10 Sulfa (Sulfonamide Allergy Severe RASH Verified 10/13/19 09:10 Antibiotics) [SULFA (SULFONAMIDE ANTIBIOTICS)] Review of Systems Review of Systems Narrative: GENERAL: Denies chills, fatigue, malaise, fever, sweats, travel HEENT: Denies sinus pain, ear pain, sore throat, difficulty swallowing, neck pain RESPIRATORY: Denies dyspnea, cough, wheezing, hemoptysis, sputum. CARDIOVASCULAR: Denies chest pain, palpitations, orthopnea, edema GASTROINTESTINAL: See HPI : Denies dysuria, frequency, incontinence, hematuria, urinary retention, flank pain. MUSCULOSKELETAL: Denies weakness, joint pain, or bony pain SKIN: No rash, no erythema, no pruritus NEUROLOGIC: Denies weakness, dizziness, headache, numbness, change in speech, confusion PSYCHIATRIC: No concerning psychosocial issues. 12 point review of systems is negative except for those stated above and HPI Patient History Medical History Acquired hypothyroidism (Chronic) Anxiety (Chronic) Essential hypertension (Chronic) GERD with esophagitis (Chronic) Surgical History Status post hysterectomy Family History Mother Colon cancer Social History household members: spouse Smoking Status: Never smoker Smoking Status: Never smoker alcohol intake frequency: a few times a month Substance Use Type: does not use Exam Initial Vital Signs Initial Vital Signs: Vital Signs Temperature 98.6 F 10/13/19 09:03 Pulse Rate 64 10/13/19 09:03 Respiratory Rate 14 10/13/19 09:03 Blood Pressure 176/88 H 10/13/19 09:03 Pulse Oximetry 98 10/13/19 09:03 GENERAL: Alert well-appearing elderly female appears younger than stated age HEENT: Head atraumatic,EOMI, pupils reactive, face symmetric, moist mucous membranes CARDIOVASCULAR: Regular rate and rhythm without murmurs, rubs or gallops. RESPIRATORY: Breath sounds equal bilaterally, no wheezes rales or rhonchi. ABDOMEN: Soft, minimal tenderness right lower quadrant no guarding or rebound EXTREMITIES: Normal range of motion, no clubbing or edema. Neurovascularly intact NEUROLOGICAL: Alert and oriented x4.Normal gait and speech. Cranial nerves II through XII grossly intact. SKIN: Warm, dry, no laceration, no petechiae, no rashes or lesions. Course Orders Ordered: ED Orders 10/13/19 09:53 Complete Blood Count AUTO DIFF Stat Comprehensive Metabolic Panel Stat Lipase Stat 10/13/19 10:24 CT abdomen pelvis w con Stat Vital Signs Vital signs: Vital Signs - 8 hr 10/13/19 09:03 10/13/19 11:15 10/13/19 11:20 Temperature 98.6 F Pulse Rate 64 61 Respiratory Rate 14 16 Blood Pressure 176/88 H 163/79 H Pulse Oximetry 98 99 MDM - Abdominal Pain Lab Data Attestation: I reviewed the patient's lab results. Result diagrams: 10/13/19 09:53 10/13/19 09:53 Labs: Lab Results 10/13/19 10/13/19 Range/Units 09:53 09:53 WBC 4.6 (4.5-11.0) X10^3/uL RBC 4.27 (4.0-5.2) X10^6/uL Hgb 13.7 (12.0-16.0) g/dL Hct 40.2 (36-46) % MCV 94.1 (80-100) fL MCH 32.0 (26-34) PG MCHC 34.0 (30-36) % RDW 13.0 (11.6-14.8) % Plt Count 160 (150-400) X10^3/uL Neut % (Auto) 55.5 (50-75) % Lymph % (Auto) 31.9 (25-40) % Kimball % (Auto) 10.4 (3-14) % Eos % (Auto) 1.9 L (2-4) % Baso % (Auto) 0.3 (0-2) % Neut # (Auto) 2500 (8467-5978) /uL Lymph # (Auto) 1500 (8764-8732) /uL Kimball # (Auto) 500 (0-900) /uL Eos # (Auto) 100 (0-450) /uL Baso # (Auto) 0 (0-100) /uL Sodium 139 (137-145) mmol/L Potassium 3.9 (3.4-5.1) mmol/L Chloride 106 (98-107) mmol/L Carbon Dioxide 26 (22-32) mmol/L BUN 12 (7-17) mg/dL Creatinine 0.58 (0.52-1.04) mg/dL Estimated GFR > 60.0 (>60) mL/min BUN/Creatinine Ratio 20.7 (6-22) Glucose 93 (80-110) mg/dL Calcium 9.7 (8.4-10.2) mg/dL Total Bilirubin 0.8 (0.2-1.3) mg/dL AST 28 (14-36) IU/L ALT 20 (<35) IU/L Alkaline Phosphatase 55 (38-126) U/L Total Protein 6.7 (6.3-8.2) g/dL Albumin 4.2 (3.5-5.0) g/dL Globulin 2.5 (1.7-4.1) g/dL Albumin/Globulin Ratio 1.7 (1.0-2.8) Lipase 66 (23-300) U/L Imaging Data CT scan - abdomen/pelvis: Radiologist's Impression: PROCEDURE: CT ABDOMEN PELVIS W CON INDICATIONS: RLQ pain hx of appy TECHNIQUE: After the administration of intravenous contrast, 5 mm thick sections acquired from the diaphragm to the symphysis. 5 mm coronal and sagittal reformats were acquired. For radiation dose reduction, the following was used: automated exposure control, adjustment of mA and/or kV according to patient size. COMPARISON: [facility], CT, CT ABDOMEN PELVIS W CON, 12/31/2017, 20:00. [facility], CT, ABDOMEN/PELVIS WITH CONTRAST, 06/10/2017, 10:31. FINDINGS: Image quality: Excellent. ABDOMEN: Lung bases: Lung bases are clear. Heart size is normal. Solid organs: Liver is normal in size and enhancement. Gallbladder appears normal. Biliary system is non dilated. Pancreas enhances normally. Spleen is normal in size and enhancement. Multiple coarse calcifications in the spleen are likely the sequela of prior granulomatous disease. No adrenal nodules are identified. Kidneys demonstrate normal size and enhancement, without hydronephrosis. Subcentimeter hypodensities in both kidneys are too small to characterize, but most likely represent cysts. Peritoneum and bowel: There is a small hiatal hernia. Postsurgical changes are seen at the cecal tip from prior appendectomy. Mild bowel wall thickening in the distal sigmoid colon and rectum is nonspecific, but may indicate mild colitis. There is no ascites or pneumoperitoneum. Nodes and vessels: No retroperitoneal or mesenteric adenopathy by size criteria. Aorta and inferior vena cava are normal in size. Mild atherosclerotic calcifications are seen in the aorta. Miscellaneous: A small fat containing periumbilical hernia is seen. PELVIS: Genitourinary: Bladder wall thickness is normal. Miscellaneous: No inguinal hernias or adenopathy. Bones: No suspicious bony lesions. No vertebral body compression fractures. Degenerative changes are seen in the included portion of the lumbar spine fine with mild levoconvex curvature. Chronic fracture deformity of the S2 sacral vertebrae is noted. IMPRESSION: 1. Mild thickening of the distal sigmoid colon and rectum is nonspecific, but may indicate mild proctocolitis. No signs of bowel obstruction. 2. Unchanged chronic fracture deformity of the S2 vertebra. 3. Small hiatal hernia. 4. Moderate degenerative changes in the lumbar spine. Dictated by: Parveen Bhat M.D. on 10/13/2019 at 10:41 Approved by: Parveen Bhat M.D. on 10/13/2019 at 10:52 [facility] Narrative Medical decision making narrative: Patient has chronic ongoing abdominal issues CT does show some inflammation and possible proctitis but unlikely to be causing her ongoing pain. I recommend follow-up with primary care provider. She actually had a colonoscopy 2 years she may need another 1 if this continues. Blood work is overall reassuring and within normal limits. Discharge Plan Departure Patient Disposition: Home Clinical Impression: Abdominal pain, chronic, right lower quadrant Discharge Date/Time: 10/13/19 11:31 Instructions: DI for Abdominal Pain-Adult Activity Restrictions/Additional Instructions: *You have been diagnosed with chronic abdominal pain *What to do: Your CT scan does show some inflammation around her rectum but this is unlikely causing your symptoms. Recommend you follow-up with primary care provider. You may need a repeat colonoscopy for ongoing diarrhea *Continue to take medications as directed *Follow up with your primary care provider in 2-3 days *Return to ER if you should have worsening pain persistent vomiting or any new, worsening or concerning symptoms Prescriptions: No Action ranitidine HCl 150 mg capsule 150 mg PO DAILY Qty: 90 RF: 2 [B FIFTY COMPLEX] 1 mg PO DAILY Qty: 0 RF: 0 trazodone 50 mg tablet 50 mg PO BEDTIME PRN (Reason: insomnia) Qty: 30 RF: 0 famotidine 40 mg tablet 40 mg PO DAILY Qty: 90 RF: 1 clopidogrel 75 mg tablet See Rx Instructions .ROUTE .COMPLEX Qty: 90 RF: 0 metoprolol succinate 50 mg tablet extended release 24 hr See Rx Instructions .ROUTE .COMPLEX Qty: 30 RF: 2 Cyclosporine 1 drop EYE-BOTH BID Qty: 5 RF: 1 Restasis 0.05 % dropperette 1 drp EYE-BOTH BID Qty: 30 RF: 1 atorvastatin 40 mg tablet 40 mg PO DAILY Qty: 30 RF: 1 levothyroxine 88 mcg tablet 88 mcg PO DAILY RF: 0 aspirin 81 mg tablet,delayed release (DR/EC) 81 mg PO DAILY Qty: 30 RF: 12 Referrals: Tere Blakely MD [Primary Care Provider] -
[2019-10-13 10:00] LABS: Add Manual Diff / Slide Review NO; Basophils Absolute Auto 0 /uL (0-100); Basophils Percent Auto 0.3 % (0-2); Eosinophils Absolute Auto 100 /uL (0-450); Eosinophils Percent Auto 1.9 % (2-4); Hematocrit 40.2 % (36-46); Hemoglobin 13.7 g/dL (12.0-16.0); Lymphocytes Absolute Auto 1500 /uL (1100-4500); Lymphocytes Percent Auto 31.9 % (25-40); Mean Corpuscular Volume 94.1 fL (80-100); Monocytes Absolute Auto 500 /uL (0-900); Monocytes Percent Auto 10.4 % (3-14); Neutrophils Absolute Auto 2500 /uL (1500-7000); Neutrophils Percent Auto 55.5 % (50-75); Platelet Count 160 X10^3/uL (150-400); Red Blood Cell Count 4.27 X10^6/uL (4.0-5.2); White Blood Cell Count 4.6 X10^3/uL (4.5-11.0)
[2019-10-13 10:18] LABS: Alanine Aminotransferase 20 IU/L (<35); Albumin 4.2 g/dL (3.5-5.0); Albumin Globulin Ratio 1.7 (1.0-2.8); Alkaline Phosphatase 55 U/L (38-126); Aspartate Aminotransferase 28 IU/L (14-36); BUN Creatinine Ratio 20.7 (6-22); Bilirubin Total 0.8 mg/dL (0.2-1.3); Blood Urea Nitrogen 12 mg/dL (7-17); Calcium 9.7 mg/dL (8.4-10.2); Carbon Dioxide 26 mmol/L (22-32); Chloride 106 mmol/L (98-107); Estimated Glomerular Filt Rate > 60.0 mL/min (>60); Globulin 2.5 g/dL (1.7-4.1); Glucose 93 mg/dL (80-110); HEMOLYSIS < 15 (0-50); Lipase 66 U/L (23-300); Potassium 3.9 mmol/L (3.4-5.1); Sodium 139 mmol/L (137-145); Total Protein 6.7 g/dL (6.3-8.2)
--- NOTE | 2019-10-13 10:24 | DI.CT.S_ITS ---
PROCEDURE: CT ABDOMEN PELVIS W CON INDICATIONS: RLQ pain hx of appy TECHNIQUE: After the administration of intravenous contrast, 5 mm thick sections acquired from the diaphragm to the symphysis. 5 mm coronal and sagittal reformats were acquired. For radiation dose reduction, the following was used: automated exposure control, adjustment of mA and/or kV according to patient size. COMPARISON: [facility], CT, CT ABDOMEN PELVIS W CON, 12/31/2017, 20:00. [facility], CT, ABDOMEN/PELVIS WITH CONTRAST, 06/10/2017, 10:31. FINDINGS: Image quality: Excellent. ABDOMEN: Lung bases: Lung bases are clear. Heart size is normal. Solid organs: Liver is normal in size and enhancement. Gallbladder appears normal. Biliary system is non dilated. Pancreas enhances normally. Spleen is normal in size and enhancement. Multiple coarse calcifications in the spleen are likely the sequela of prior granulomatous disease. No adrenal nodules are identified. Kidneys demonstrate normal size and enhancement, without hydronephrosis. Subcentimeter hypodensities in both kidneys are too small to characterize, but most likely represent cysts. Peritoneum and bowel: There is a small hiatal hernia. Postsurgical changes are seen at the cecal tip from prior appendectomy. Mild bowel wall thickening in the distal sigmoid colon and rectum is nonspecific, but may indicate mild colitis. There is no ascites or pneumoperitoneum. Nodes and vessels: No retroperitoneal or mesenteric adenopathy by size criteria. Aorta and inferior vena cava are normal in size. Mild atherosclerotic calcifications are seen in the aorta. Miscellaneous: A small fat containing periumbilical hernia is seen. PELVIS: Genitourinary: Bladder wall thickness is normal. Miscellaneous: No inguinal hernias or adenopathy. Bones: No suspicious bony lesions. No vertebral body compression fractures. Degenerative changes are seen in the included portion of the lumbar spine fine with mild levoconvex curvature. Chronic fracture deformity of the S2 sacral vertebrae is noted. IMPRESSION: 1. Mild thickening of the distal sigmoid colon and rectum is nonspecific, but may indicate mild proctocolitis. No signs of bowel obstruction. 2. Unchanged chronic fracture deformity of the S2 vertebra. 3. Small hiatal hernia. 4. Moderate degenerative changes in the lumbar spine. Dictated by: Parveen Bhat M.D. on 10/13/2019 at 10:41 Approved by: Parveen Bhat M.D. on 10/13/2019 at 10:52
[2019-10-13 11:15] VITALS: BP 163/79; PULSE 61; O2SAT 99
[2019-10-13 11:20] VITALS: RESP 16
== END 2019-10-13 11:31 | disposition home or self-care (01) ==
PROVIDERS: Emergency Provider Emergency Medicine; PCP Family Medicine
DX: R10.31 Right lower quadrant pain (principal)
CPT/HCPCS: 74177; 80053; 83690; 85025; 99284; Q9967

== ENCOUNTER → 2020-03-17 10:55 | Outpatient (CLI) | payer MEDICARE, OTHER, SELFPAY ==
[2018-06-26 16:55] VITALS: BMI 21.7
[2020-03-17 13:32] LABS: HEMOLYSIS < 15 (0-50); Iron 123 ug/dL (37-170)
[2020-03-17 13:34] LABS: Alanine Aminotransferase 17 IU/L (<35); Albumin 4.1 g/dL (3.5-5.0); Albumin Globulin Ratio 1.6 (1.0-2.8); Alkaline Phosphatase 64 U/L (38-126); Aspartate Aminotransferase 28 IU/L (14-36); BUN Creatinine Ratio 31.7 (6-22); Bilirubin Total 0.5 mg/dL (0.2-1.3); Blood Urea Nitrogen 19 mg/dL (7-17); Calcium 9.5 mg/dL (8.4-10.2); Carbon Dioxide 30 mmol/L (22-32); Chloride 104 mmol/L (98-107); Estimated Glomerular Filt Rate > 60.0 mL/min (>60); Globulin 2.6 g/dL (1.7-4.1); Glucose 91 mg/dL (80-110); HEMOLYSIS < 15 (0-50); Potassium 3.8 mmol/L (3.4-5.1); Sodium 137 mmol/L (137-145); Total Protein 6.7 g/dL (6.3-8.2)
[2020-03-17 13:45] LABS: Percent Iron Saturation 35 % (15-50); Total Iron Binding Capacity 350 ug/dL (265-497); Transferrin 277 mg/dL (206-381)
[2020-03-17 14:06] LABS: TSH w/ Reflex to FT4 1.47 uIU/mL (0.47-4.68)
[2020-03-17 14:23] LABS: Vitamin B12 Reflex MMA if <400 916 pg/mL (239-931)
== END ==
PROVIDERS: PCP Family Medicine; Referring Provider Family Medicine; Visit Provider Family Medicine
DX: E03.9 Hypothyroidism, unspecified (principal); I10 Essential (primary) hypertension
CPT/HCPCS: 36415; 80053; 82607; 83540; 83550; 84443

== ENCOUNTER → 2020-03-20 12:38 | Outpatient (CLI) | payer MEDICARE, SELFPAY ==
[2018-06-26 16:55] VITALS: BMI 21.7
== END ==
PROVIDERS: PCP Family Medicine; Referring Provider Family Medicine; Visit Provider Family Medicine
DX: Z13.820 Encounter for screening for osteoporosis (principal); M85.851 Other specified disorders of bone density and structure, right thigh; Z78.0 Asymptomatic menopausal state
CPT/HCPCS: 77080

== ENCOUNTER → 2020-03-30 12:40 | Outpatient (CLI) | payer MEDICARE, SELFPAY ==
[2018-06-26 16:55] VITALS: BMI 21.7
[2020-03-30] MEDS: COVID-19 VACC #1, MRNA(MOD) 100 MCG/0.5 ML VIAL IM (12:50)
== END ==
PROVIDERS: PCP Family Medicine; Visit Provider Internal Medicine
DX: Z23 Encounter for immunization (principal)
CPT/HCPCS: 0011A; 91301

== ENCOUNTER → 2020-04-27 13:33 | Outpatient (CLI) | payer MEDICARE, SELFPAY ==
[2018-06-26 16:55] VITALS: BMI 21.7
[2020-04-27] MEDS: COVID-19 VACC #2, MRNA(MOD) 100 MCG/0.5 ML VIAL IM (13:45)
== END ==
PROVIDERS: PCP Family Medicine; Visit Provider Internal Medicine
DX: Z23 Encounter for immunization (principal)
CPT/HCPCS: 0012A; 91301

== ENCOUNTER → 2021-03-22 10:28 | Outpatient (CLI) | payer MEDICARE, SELFPAY ==
[2018-06-26 16:55] VITALS: BMI 21.7
[2021-03-22 10:48] LABS: Add Manual Diff / Slide Review NO; Basophils Absolute Auto 0 /uL (0-100); Basophils Percent Auto 0.2 % (0-2); Eosinophils Absolute Auto 100 /uL (0-450); Eosinophils Percent Auto 1.7 % (2-4); Hematocrit 38.8 % (36-46); Hemoglobin 13.4 g/dL (12.0-16.0); Lymphocytes Absolute Auto 1700 /uL (1100-4500); Mean Corpuscular HGB Conc 34.4 % (30-36); Mean Corpuscular Hemoglobin 33.3 PG (26-34); Mean Corpuscular Volume 96.9 fL (80-100); Monocytes Absolute Auto 500 /uL (0-900); Monocytes Percent Auto 9.7 % (3-14); Neutrophils Absolute Auto 2700 /uL (1500-7000); Neutrophils Percent Auto 54.4 % (50-75); Platelet Count 181 X10^3/uL (150-400); Red Blood Cell Count 4.01 X10^6/uL (4.0-5.2); Red Cell Distribution Width 12.8 % (11.6-14.8)
[2021-03-22 11:07] LABS: Alanine Aminotransferase 18 IU/L (<35); Albumin 4.6 g/dL (3.5-5.0); Albumin Globulin Ratio 1.8 (1.0-2.8); Alkaline Phosphatase 54 U/L (38-126); Aspartate Aminotransferase 24 IU/L (14-36); Bilirubin Total 0.8 mg/dL (0.2-1.3); Blood Urea Nitrogen 13 mg/dL (7-17); Calcium 9.8 mg/dL (8.4-10.2); Carbon Dioxide 28 mmol/L (22-32); Chloride 104 mmol/L (98-107); Cholesterol 211 mg/dL (140-199); Estimated Glomerular Filt Rate > 60.0 mL/min (>60); Globulin 2.5 g/dL (1.7-4.1); Glucose 100 mg/dL (80-110); HDL Cholesterol 105 mg/dL (40-60); HEMOLYSIS < 15 (0-50); LDL Cholesterol Calculated 88 mg/dL (<100); Potassium 3.7 mmol/L (3.4-5.1); Sodium 138 mmol/L (137-145); Total Protein 7.1 g/dL (6.3-8.2); Triglycerides 92 mg/dL (35-150)
[2021-03-22 11:35] LABS: TSH w/ Reflex to FT4 1.09 uIU/mL (0.47-4.68)
[2021-03-22 12:30] LABS: Microalbumi Creatinin Ratio Ur 38.9 ug/mg CR (<30); Microalbumin Urine Random 5.1 mg/dL (0-1.6)
== END ==
PROVIDERS: PCP Family Medicine; Referring Provider Family Medicine; Visit Provider Family Medicine
DX: I10 Essential (primary) hypertension (principal); E03.9 Hypothyroidism, unspecified; F41.9 Anxiety disorder, unspecified; G31.84 Mild cognitive impairment of uncertain or unknown etiology
CPT/HCPCS: 36415; 80053; 80061; 82043; 82570; 84443; 85025

== ENCOUNTER 2022-02-01 15:18 | Emergency (ER) | payer MEDICARE, SELFPAY ==
[2018-06-26 16:55] VITALS: BMI 21.7
[2022-02-01] VITALS (13 sets, daily range): BP systolic 174–230; BP diastolic 89–96; PULSE 79–89; RESP 18–40; TEMP 37.1; O2SAT 94–100
--- NOTE | 2022-02-01 15:33 | DI.CT.S_ITS ---
PROCEDURE: CT CERVICAL SPINE WO CON INDICATIONS: head injury last night TECHNIQUE: Noncontrast 3 mm thick sections acquired from the skull base to the T4 level. Sagittal and coronal reformats were then constructed. For radiation dose reduction, the following was used: automated exposure control, adjustment of mA and/or kV according to patient size. COMPARISON: [facility], CT, CT ANGIO HEAD AND NECK, 06/26/2018, 14:06. [facility], CR, XR SHOULDER RT MIN 2V, 02/01/2022, 16:27. [facility], CT, CT FACIAL BONES WO CON, 02/01/2022, 16:13. [facility], CT, CT HEAD/BRAIN WO CON, 02/01/2022, 15:37. [facility], MR, MR CERVICAL SPINE WO CON, 12/24/2018, 11:15. FINDINGS: Image quality: This examination is somewhat limited by quantum mottle artifact. Bones: No fractures or dislocations. Visualized superior ribs are intact. Cervical spine degenerative changes are seen, with mild retrolisthesis at C4-C5 and minimal retrolisthesis at C5-C6. There is moderate to severe disc space narrowing at C4-C5, with moderate disc space narrowing at C5-C6. Milder degenerative changes are seen elsewhere. Soft tissues: Prevertebral soft tissues are normal in thickness. No paravertebral hematomas. No apical pneumothoraces. IMPRESSION: Negative for acute fracture. Degenerative changes are seen, which are worst at the C4-C5 level. Dictated by: Kenny Resendez M.D. on 02/01/2022 at 16:08 Approved by: Kenny Resendez M.D. on 02/01/2022 at 16:09
--- NOTE | 2022-02-01 15:33 | DI.CT.S_ITS ---
PROCEDURE: CT HEAD/BRAIN WO CON INDICATIONS: head injury TECHNIQUE: Noncontrast 4.5 mm thick angled axial sections acquired from the foramen magnum to the vertex, with coronal and sagittal reformats. For radiation dose reduction, the following was used: automated exposure control, adjustment of mA and/or kV according to patient size. COMPARISON: [facility], MR, MR STROKE, 06/27/2018, 8:59. [facility], CR, XR SHOULDER RT MIN 2V, 02/01/2022, 16:27. [facility], CT, CT FACIAL BONES WO CON, 02/01/2022, 16:13. [facility], CT, CT CERVICAL SPINE WO CON, 02/01/2022, 15:37. [facility], CT, CT HEAD/BRAIN WO CON, 06/26/2018, 13:08. FINDINGS: Image quality: Excellent. CSF spaces: Basal cisterns are patent. No extra-axial fluid collections. The ventricles are symmetric in size and shape. Brain: No intracranial bleeds or masses. There is cerebral volume loss for age, with resultant ventricular and sulcal prominence. There are periventricular and deep white matter chronic small vessel ischemic changes. There is intracranial internal carotid artery atherosclerosis. Skull and face: Nasal bone fractures and right-sided facial bone fractures are partially seen. There is gas seen within the right orbit. Right-sided soft tissue facial hematoma is partially seen. No displaced calvarial fracture is seen. Sinuses: Visualized sinuses and mastoids are clear. IMPRESSION: No acute intracranial hemorrhage is seen. No acute intracranial process is seen. Partial visualization of facial injury. Dictated by: Kenny Resendez M.D. on 02/01/2022 at 16:10 Approved by: Kenny Resendez M.D. on 02/01/2022 at 16:11
--- NOTE | 2022-02-01 15:41 | DI.CT.S_ITS ---
PROCEDURE: CT FACIAL BONES WO CON INDICATIONS: trauma, nasal bone fracture, rt eye ecchymosis TECHNIQUE: Noncontrast 2.5 mm thick axial images acquired from the mandible through the frontal sinuses, with coronal and sagittal reformatting. For radiation dose reduction, the following was used: automated exposure control, adjustment of mA and/or kV according to patient size. COMPARISON: [facility], CR, XR SHOULDER RT MIN 2V, 02/01/2022, 16:27. [facility], CT, CT HEAD/BRAIN WO CON, 02/01/2022, 15:37. [facility], CT, CT CERVICAL SPINE WO CON, 02/01/2022, 15:37. FINDINGS: Image quality: Excellent. Bones and teeth: Comminuted complex nasal bone fractures are seen. A potential nasal septal fracture can be seen. Fractures are seen involving the anterior wall of the left maxillary sinus. There is a fracture of the right orbital floor. Soft tissue gas can be seen within the right orbit. The right zygomatic arch is intact. Visualized portions of the mandible demonstrate no fractures or subluxation. Zygomatic arches are intact. Pterygoid plates are intact. Visualized portions of the skull base and auditory canals are intact. Degenerative changes are seen throughout, including involving the visualized cervical spine. Sinuses: Blood is seen within the right-sided sinuses, including an air blood level within the right maxillary sinus. Soft tissues: Right cheek soft tissue laceration with hematoma and soft tissue gas can be seen. Vascular: Visualized vascular structures appear normal in the absence of contrast. Bony vascular foramina and canals are intact. Atherosclerotic calcification is noted. IMPRESSION: Fractures are seen involving the anterior wall of the right maxillary sinus, with a fracture also seen of the right orbital floor. Associated gas can be seen within the right orbit. Moderately displaced nasal bone fractures are seen, with a potential associated nasal septal fracture. Associated blood can be seen within the right-sided sinuses. Dictated by: Kenny Resendez M.D. on 02/01/2022 at 16:01 Approved by: Kenny Resendez M.D. on 02/01/2022 at 16:08
[2022-02-01] MEDS: ACETAMINOPHEN 325 MG TABLET 650 MG PO (15:48)
--- NOTE | 2022-02-01 15:48 | ED_ITS ---
HPI - Fall <AGUSTÍN Portillo - Last Filed: 02/01/22 19:53> General Chief Complaint: Fall Stated Complaint: GLF hit head, no blood thinners Time Seen by Provider: 02/01/22 15:33 Mode of arrival: Family Vehicle History of Present Illness HPI Narrative: This is an 86-year-old female with history of cognitive impairment who presents with her neighbor/friend who brought her in for evaluation after she called him today saying that her face hurts. She had a fall sometime last night which she does not remember and has a laceration over the bridge of her nose, ecchymosis to her right eye, and complains of headache. She denies any nausea or vomiting, denies any neck pain, is not on anticoagulants. She lives alone denies any recent illness. She denies any eye pain, vision changes or eye pain with movement she denies any sensation of foreign body in her eye or pain to her eye. Related Data Previous Rx's Medication Instructions Recorded aspirin 81 mg tablet,delayed 81 mg PO DAILY #30 tabs 06/27/18 release levothyroxine 88 mcg tablet See Rx Instructions .Route 01/20/22 .COMPLEX #90 tabs acetaminophen 325 mg tablet 650 mg PO Q6H PRN fever or pain 02/01/22 (Tylenol) #30 tabs cephalexin 500 mg capsule 500 mg PO BID 5 days #10 caps 02/01/22 mupirocin 2 % topical ointment 1 applic topical BID 1 week #15 02/01/22 grams Allergies Allergy/AdvReac Type Severity Reaction Status Date / Time RAYMUNDO Inhibitors Allergy Severe RASH Verified 02/01/22 15:28 [RAYMUNDO INHIBITORS] lisinopril [LISINOPRIL] Allergy Severe Rash Verified 02/01/22 15:28 Sulfa (Sulfonamide Allergy Severe RASH Verified 02/01/22 15:28 Antibiotics) [SULFA (SULFONAMIDE ANTIBIOTICS)] Review of Systems <AGUSTÍN Portillo - Last Filed: 02/01/22 19:53> Review of Systems Narrative: Review of systems is negative for acute abnormalities unless otherwise noted in HPI Patient History <AGUSTÍN Portillo - Last Filed: 02/01/22 19:53> Medical History Acquired hypothyroidism Altered mental status Anxiety Cognitive impairment Essential hypertension GERD with esophagitis Grief Surgical History Status post hysterectomy Family History Mother Colon cancer Social History household members: spouse Smoking Status: Never smoker Smoking Status: Never smoker alcohol intake frequency: a few times a month Substance Use Type: does not use Exam <AGUSTÍN Portillo - Last Filed: 02/01/22 19:53> Narrative Exam Narrative: Reviewed vitals signs and nursing notes. General: cooperative, comfortable, in no acute distress, well groomed, patient is sitting up, on the side of the bed, denies neck pain and has full range of motion of her neck without deficit, no anterior cervical lymphadenopathy, no intraoral wounds, dried blood to her lacerations across the bridge of her nose and the medial aspect by her right eye on the nasal bone HEENT: symmetrical facial expressions, moist mucous membranes, EOMI, PERRLA, ecchymosis to the right orbit with no tenderness over the orbital rims bilaterally, maxillary bones, jaw and Cardiovascular: regular rate and rhythm, no peripheral edema, warm extremities Respiratory: normal effort, able to speak in complete sentences, without wheezing, stridor, or abnormal breath sounds. No retractions or tachypnea. GI: abdomen soft, nontender to palpation, nondistended, without masses, rebound tenderness or exquisite tenderness with exam. MSK: moves all extremities, complains of right arm pain with full range of motion. Neurovascularly intact, no weakness, normal tone Skin: brisk capillary refill, without pallor or erythema Neuro: normal speech and cognition, A&O x3, ambulatory, clear speech Psych: mental status is grossly normal, congruent mood, normal affect, pleasant and cooperative Initial Vital Signs Initial Vital Signs: Vital Signs Temperature 98.7 F 02/01/22 15:25 Pulse Rate 89 02/01/22 15:25 Respiratory Rate 18 02/01/22 15:25 Blood Pressure 192/93 H 02/01/22 15:25 Pulse Oximetry 99 02/01/22 15:25 Oxygen Delivery Method 02/01/22 15:25 <Caden Balderas MD - Last Filed: 02/02/22 07:06> Initial Vital Signs Initial Vital Signs: Vital Signs Temperature 98.7 F 02/01/22 15:25 Pulse Rate 89 02/01/22 15:25 Respiratory Rate 18 02/01/22 15:25 Blood Pressure 192/93 H 02/01/22 15:25 Pulse Oximetry 99 02/01/22 15:25 Oxygen Delivery Method 02/01/22 15:25 Procedures <AGUSTÍN Portillo - Last Filed: 02/01/22 19:53> Laceration Repair Laceration 1: Site: face Side (If applicable): right Size (cm): 3 Description: linear and stellate Depth: simple, single layer Local Anesthetic: lidocaine 2% Amount of anesthesia used (mL): 6 Pre-repair: wound explored and irrigated extensively (Nasal bone fracture is exposed, thoroughly irrigated and covered with bacitracin after suture repair) Skin layer closed with: nylon Skin layer suture size: 6-0 Number of sutures: 12 Technique: simple, interrupted Course <AGUSTÍN Portillo - Last Filed: 02/01/22 19:53> Orders Ordered: Discontinued Medications Acetaminophen (Acetaminophen 325 Mg Tablet) 650 mg PO NOW ONE Stop: 02/01/22 15:42 Last Admin: 02/01/22 15:48 Dose: 650 mg Documented By: YOMAIRA Bacitracin (Bacitracin Oint 0.9 Gm Pckt) 1 applic TOP NOW ONE Stop: 02/01/22 15:34 Last Admin: 02/01/22 16:29 Dose: 1 applic Documented By: ALEJO Cephalexin HCl (Cephalexin 250 Mg Capsule) 500 mg PO NOW ONE Stop: 02/01/22 18:42 Last Admin: 02/01/22 18:50 Dose: 500 mg Documented By: ALEJO Diphtheria/Tetanus/Acell Pertussis (Tet,Diph,Pertuss(Acell),Vac/Pf 0.5 Ml Syringe) 0.5 ml IM .ONCE ONE Stop: 02/01/22 15:42 Last Admin: 02/01/22 15:49 Dose: 0.5 ml Documented By: YOMAIRA Lidocaine HCl (Lidocaine 2% Inj Mdv 20ml) 20 ml INJ INTRA-OP ONE Stop: 02/01/22 15:48 Last Admin: 02/01/22 16:35 Dose: Not Given Documented By: ALEJO Lidocaine HCl (Lidocaine 2% Inj Mdv 20ml) 1 ml SUBCUT NOW ONE Stop: 02/01/22 16:31 Last Admin: 02/01/22 16:34 Dose: 1 ml Documented By: ALEJO Lidocaine/Epinephrine (Lidocaine 2% W/Epi Inj) 20 ml INJ INTRA-OP ONE Stop: 02/01/22 15:42 Last Admin: 02/01/22 16:35 Dose: Not Given Documented By: ALEJO Lidocaine/Epinephrine (Lidocaine 1% W/Epi) 1 ml SUBCUT NOW ONE Stop: 02/01/22 15:48 Last Admin: 02/01/22 16:35 Dose: Not Given Documented By: ALEJO Lidocaine/Prilocaine (Lidocaine/Prilocaine 30 Gm) 1 applic TOP NOW ONE Stop: 02/01/22 15:55 Last Admin: 02/01/22 15:55 Dose: 1 applic Documented By: ALEJO Metoprolol Tartrate (Metoprolol Ir 25 Mg Tablet) 25 mg PO NOW ONE Stop: 02/01/22 19:57 Last Admin: 02/01/22 20:01 Dose: 25 mg Documented By: ALEJO Vital Signs Vital signs: Vital Signs - 8 hr 02/01/22 15:25 02/01/22 16:06 02/01/22 16:07 Temperature 98.7 F Pulse Rate 89 88 Respiratory Rate 18 Blood Pressure 192/93 H Pulse Oximetry 99 98 98 Oxygen Delivery Method Room Air 02/01/22 16:07 02/01/22 18:56 02/01/22 18:57 Temperature Pulse Rate 87 Respiratory Rate Blood Pressure 174/95 H 215/94 H Pulse Oximetry 100 Oxygen Delivery Method 02/01/22 18:57 02/01/22 18:59 02/01/22 19:13 Temperature Pulse Rate 86 Respiratory Rate Blood Pressure 230/96 H 213/93 H Pulse Oximetry 100 Oxygen Delivery Method 02/01/22 19:17 02/01/22 19:38 Temperature Pulse Rate Respiratory Rate Blood Pressure 225/93 H 224/94 H Pulse Oximetry Oxygen Delivery Method <Caden Balderas MD - Last Filed: 02/02/22 07:06> Orders Ordered: Discontinued Medications Acetaminophen (Acetaminophen 325 Mg Tablet) 650 mg PO NOW ONE Stop: 02/01/22 15:42 Last Admin: 02/01/22 15:48 Dose: 650 mg Documented By: YOMAIRA Bacitracin (Bacitracin Oint 0.9 Gm Pckt) 1 applic TOP NOW ONE Stop: 02/01/22 15:34 Last Admin: 02/01/22 16:29 Dose: 1 applic Documented By: ALEJO Cephalexin HCl (Cephalexin 250 Mg Capsule) 500 mg PO NOW ONE Stop: 02/01/22 18:42 Last Admin: 02/01/22 18:50 Dose: 500 mg Documented By: ALEJO Diphtheria/Tetanus/Acell Pertussis (Tet,Diph,Pertuss(Acell),Vac/Pf 0.5 Ml Syringe) 0.5 ml IM .ONCE ONE Stop: 02/01/22 15:42 Last Admin: 02/01/22 15:49 Dose: 0.5 ml Documented By: YOMAIRA Lidocaine HCl (Lidocaine 2% Inj Mdv 20ml) 20 ml INJ INTRA-OP ONE Stop: 02/01/22 15:48 Last Admin: 02/01/22 16:35 Dose: Not Given Documented By: ALEJO Lidocaine HCl (Lidocaine 2% Inj Mdv 20ml) 1 ml SUBCUT NOW ONE Stop: 02/01/22 16:31 Last Admin: 02/01/22 16:34 Dose: 1 ml Documented By: ALEJO Lidocaine/Epinephrine (Lidocaine 2% W/Epi Inj) 20 ml INJ INTRA-OP ONE Stop: 02/01/22 15:42 Last Admin: 02/01/22 16:35 Dose: Not Given Documented By: ALEJO Lidocaine/Epinephrine (Lidocaine 1% W/Epi) 1 ml SUBCUT NOW ONE Stop: 02/01/22 15:48 Last Admin: 02/01/22 16:35 Dose: Not Given Documented By: ALEJO Lidocaine/Prilocaine (Lidocaine/Prilocaine 30 Gm) 1 applic TOP NOW ONE Stop: 02/01/22 15:55 Last Admin: 02/01/22 15:55 Dose: 1 applic Documented By: ALEJO Metoprolol Tartrate (Metoprolol Ir 25 Mg Tablet) 25 mg PO NOW ONE Stop: 02/01/22 19:57 Last Admin: 02/01/22 20:01 Dose: 25 mg Documented By: ALEJO Vital Signs Vital signs: Vital Signs - 8 hr 02/01/22 15:25 02/01/22 16:06 02/01/22 16:07 Temperature 98.7 F Pulse Rate 89 88 Respiratory Rate 18 Blood Pressure 192/93 H Pulse Oximetry 99 98 98 Oxygen Delivery Method Room Air 02/01/22 16:07 02/01/22 18:56 02/01/22 18:57 Temperature Pulse Rate 87 Respiratory Rate Blood Pressure 174/95 H 215/94 H Pulse Oximetry 100 Oxygen Delivery Method 02/01/22 18:57 02/01/22 18:59 02/01/22 19:13 Temperature Pulse Rate 86 Respiratory Rate Blood Pressure 230/96 H 213/93 H Pulse Oximetry 100 Oxygen Delivery Method 02/01/22 19:17 02/01/22 19:38 Temperature Pulse Rate Respiratory Rate Blood Pressure 225/93 H 224/94 H Pulse Oximetry Oxygen Delivery Method MDM - Fall <Leia Harvey, [facility] - Last Filed: 02/01/22 19:53> Imaging Data CT scan - head: Radiologist's Impression: PROCEDURE:? CT HEAD/BRAIN WO CON ? INDICATIONS:? head injury ? TECHNIQUE:? Noncontrast 4.5 mm thick angled axial sections acquired from the foramen magnum to the vertex, with coronal and sagittal reformats.? For radiation dose reduction, the following was used:? automated exposure control, adjustment of mA and/or kV according to patient size.? ? COMPARISON:? [facility], MR, MR STROKE, 06/27/2018, 8:59.? [facility], CR, XR SHOULDER RT MIN 2V, 02/01/2022, 16:27.? [facility], CT, CT FACIAL BONES WO CON, 02/01/2022, 16:13.? [facility], CT, CT CERVICAL SPINE WO CON, 02/01/2022, 15:37.? [facility], CT, CT HEAD/BRAIN WO CON, 06/26/2018, 13:08. ? FINDINGS:? Image quality:? Excellent.? ? CSF spaces:? Basal cisterns are patent.? No extra-axial fluid collections.? The ventricles are symmetric in size and shape.? ? Brain:? No intracranial bleeds or masses.? There is cerebral volume loss for age, with resultant ventricular and sulcal prominence.? There are periventricular and deep white matter chronic small vessel ischemic changes.? There is intracranial internal carotid artery atherosclerosis.? ? Skull and face:? Nasal bone fractures and right-sided facial bone fractures are partially seen.? There is gas seen within the right orbit.? Right-sided soft tissue facial hematoma is partially seen.? No displaced calvarial fracture is seen. ? Sinuses:? Visualized sinuses and mastoids are clear.? ? ? IMPRESSION:? No acute intracranial hemorrhage is seen.? ? No acute intracranial process is seen.? ? Partial visualization of facial injury. ? ? Dictated by: Kenny Resendez M.D. on 02/01/2022 at 16:10 ? ? Approved by: Kenny Resendez M.D. on 02/01/2022 at 16:11 ? CT - cervical spine: Radiologist's Impression: PROCEDURE:? CT CERVICAL SPINE WO CON ? INDICATIONS:? head injury last night ? TECHNIQUE:? Noncontrast 3 mm thick sections acquired from the skull base to the T4 level.? Sagittal and coronal reformats were then constructed.? For radiation dose reduction, the following was used:? automated exposure control, adjustment of mA and/or kV according to patient size.? ? COMPARISON:? [facility], CT, CT ANGIO HEAD AND NECK, 06/26/2018, 14:06.? [facility], CR, XR SHOULDER RT MIN 2V, 02/01/2022, 16:27.? [facility], CT, CT FACIAL BONES WO CON, 02/01/2022, 16:13.? [facility], CT, CT HEAD/BRAIN WO CON, 02/01/2022, 15:37.? [facility], MR, MR CERVICAL SPINE WO CON, 12/24/2018, 11:15. ? FINDINGS:? Image quality:? This examination is somewhat limited by quantum mottle artifact.? ? Bones:? No fractures or dislocations.? Visualized superior ribs are intact.? ? Cervical spine degenerative changes are seen, with mild retrolisthesis at C4-C5 and minimal retrolisthesis at C5-C6.? There is moderate to severe disc space narrowing at C4-C5, with moderate disc space narrowing at C5-C6.? Milder degenerative changes are seen elsewhere.? ? Soft tissues:? Prevertebral soft tissues are normal in thickness.? No paravertebral hematomas.? No apical pneumothoraces.? ? ? IMPRESSION:? Negative for acute fracture. ? Degenerative changes are seen, which are worst at the C4-C5 level. ? ? ? Dictated by: Kenny Resendez M.D. on 02/01/2022 at 16:08 ? ? Approved by: Kenny Resendez M.D. on 02/01/2022 at 16:09 ? ct facial bones: Radiologist's Impression: PROCEDURE:? CT FACIAL BONES WO CON ? INDICATIONS:? trauma, nasal bone fracture, rt eye ecchymosis ? TECHNIQUE:? Noncontrast 2.5 mm thick axial images acquired from the mandible through the frontal sinuses, with coronal and sagittal reformatting.? For radiation dose reduction, the following was used:? automated exposure control, adjustment of mA and/or kV according to patient size.? ? COMPARISON:? [facility], CR, XR SHOULDER RT MIN 2V, 02/01/2022, 16:27.? [facility], CT, CT HEAD/BRAIN WO CON, 02/01/2022, 15:37.? [facility], CT, CT CERVICAL SPINE WO CON, 02/01/2022, 15:37. ? FINDINGS:? Image quality:? Excellent.? ? Bones and teeth:? Comminuted complex nasal bone fractures are seen.? A potential nasal septal fracture can be seen.? ? Fractures are seen involving the anterior wall of the left maxillary sinus.? There is a fracture of the right orbital floor.? Soft tissue gas can be seen within the right orbit. ?The right zygomatic arch is intact. ? Visualized portions of the mandible demonstrate no fractures or subluxation.? Zygomatic arches are intact.? Pterygoid plates are intact.? Visualized portions of the skull base and auditory canals are intact.? ? Degenerative changes are seen throughout, including involving the visualized cervical spine. ? Sinuses:? Blood is seen within the right-sided sinuses, including an air blood level within the right maxillary sinus. ? Soft tissues:? Right cheek soft tissue laceration with hematoma and soft tissue gas can be seen. ? Vascular:? Visualized vascular structures appear normal in the absence of contrast.? Bony vascular foramina and canals are intact.? Atherosclerotic calcification is noted.? IMPRESSION:? Fractures are seen involving the anterior wall of the right maxillary sinus, with a fracture also seen of the right orbital floor.? Associated gas can be seen within the right orbit. ? Moderately displaced nasal bone fractures are seen, with a potential associated nasal septal fracture. ? Associated blood can be seen within the right-sided sinuses. ? ? Dictated by: Kenny Resnedez M.D. on 02/01/2022 at 16:01 ? ? Approved by: Kenny Resendez M.D. on 02/01/2022 at 16:08 ? Extremity x-ray #1: Radiologist's Impression: PROCEDURE:? XR SHOULDER RT MIN 2V ? INDICATIONS:? pain ? TECHNIQUE:? 3 views of the shoulder were acquired.? ? COMPARISON:? [facility], CR, XR SHOULDER 2+ VIEWS RIGHT, 05/08/2017, 15:42.? [facility], CR, XR SHOULDER 2+ VIEWS RIGHT, 11/30/2018, 10:33.? [facility], CT, CT FACIAL BONES WO [facility], 02/01/2022, 16:13.? [facility], CT, CT CERVICAL SPINE WO [facility], 02/01/2022, 15:37.? [facility], CT, CT HEAD/BRAIN WO [facility], 02/01/2022, 15:37. ? FINDINGS:? ? Bones:? No fractures or dislocations.? No suspicious bony lesions.? Visualized ribs appear intact.? ? Soft tissues:? No suspicious soft tissue calcifications.? The visualized lung demonstrates an unremarkable appearance. ? ? IMPRESSION:? ? No acute injury is seen by plain film. ? ? Dictated by: Kenny Resendez M.D. on 02/01/2022 at 16:11 ? ? Approved by: Kenny Resendez M.D. on 02/01/2022 at 16:12 ? MDM Narrative Medical decision making narrative: This is an 86-year-old female presents to the emergency department after an unwitnessed fall last night which she does not remember the events of. She was brought into the emergency department by her friend/neighbor, he called her this morning to check on her after he helped her with her car yesterday. Patient complained of a headache, she did not have any vision changes, eye pain with eye movement, any globe injury, or worsening symptoms while she was seen in the emergency department. See imaging notes from above, patient's facial bone CT images show a comminuted complex nasal bone fracture, with a possible septal nasal fracture, I could not visualize a septum laceration on my exam. CT facial bone report shows associated blood within the right-sided sinus, associated gas within the right orbit with fracture on the orbital floor. Her vision is grossly intact bilaterally without visual acuity deficit, EOMI without eye pain, her facial movements are symmetrical bilaterally, her right eye has ecchymosis and mild edema, she is able to open and close her eye without any deficit. She had lacerations across the bridge of the nose, extending down to the right nasolabial fold, a vertical 2 cm laceration above her right eyebrow, these wounds were thoroughly irrigated and closed with sutures. She did not have any tenderness to palpation of her orbital bones bilaterally, maxillary bones, mandible, she can open and close her jaw without deficit, nares are patent and patient can breathe through her nose. Patient tolerated suture repair fairly, she had pain across her nose with repair of the tissue, superficial laceration which was not repairable underneath her right eye, this is oozing serosanguineous fluid and covered with bacitracin and a Band-Aid. She has a history of cognitive decline, lives at home, was seen by social work and given multiple resources and encouraged to follow-up with Dr. Reynolds within the next 5 days for a recheck of her wounds, suture removal, and assisted living planning. Patient was ambulatory without deficit, did not have vomiting, has somebody who can check on her at her living facility, and decision was agreed upon to let her go home if she comes back to the emergency department for any reason she should come back by ambulance and to have close checkups from her friends and neighbors over the next 2-3 days. No acute abnormalities of her CT brain, CT C-spine, or right shoulder x-ray. Patient is appropriate and amenable to discharge home. Vital signs are stable on repeat examination is unremarkable. Patient has been informed of results. Patient has been given strict return to ER precautions for any new or worsening symptoms. Patient understands to follow up closely with outpatient providers as instructed. Patient understands plan and agrees to discharge home. All questions and concerns answered at this time. Discharge Plan Departure Patient Disposition: Home Clinical Impression: Head injury due to trauma Qualifiers: Encounter type: initial encounter Qualified Code(s): S09.90XA - Unspecified injury of head, initial encounter Fracture of nasal bone Qualifiers: Encounter type: initial encounter Fracture type: open Qualified Code(s): S02.2XXB - Fracture of nasal bones, initial encounter for open fracture Facial laceration Qualifiers: Encounter type: initial encounter Qualified Code(s): S01.81XA - Laceration wit hout foreign body of other part of head, initial encounter Concussion Qualifiers: Encounter type: initial encounter Loss of consciousness presence/duration: unknown LOC status Qualified Code(s): S06.0XAA - Concussion with loss of consciousness status unknown, initial encounter Fracture of maxillary sinus Qualifiers: Encounter type: initial encounter Fracture type: open Qualified Code(s): S02.401B - Maxillary fracture, unspecified side, initial encounter for open fracture Fracture of orbital floor Qualifiers: Encounter type: initial encounter Fracture type: closed Laterality: left Qualified Code(s): S02.32XA - Fracture of orbital floor, left side, initial encounter for closed fracture Instructions: Concussion, DI for Nose Fracture, DI for Laceration Repair -- Complex, Closed Head Injury Activity Restrictions/Additional Instructions: *You have been diagnosed with nasal bone fracture, head injury without bleeding in your brain or other fracture, a concussion, and lacerations repaired with sutures. Please follow-up with the resources that social work has provided for you, I am concerned about you falling at home by herself without anyone there to check on you. Please schedule a follow-up appointment with Dr. Reynolds in 5 days and have your sutures removed. Please take Tylenol 650 mg every 6 hours as needed for pain, keep her head elevated as best as you are able, stay hydrated, take ibuprofen as needed for pain and return to the emergency department for any worsening, please call 911 for this. I am concerned that you may need more than home health if you are having falls at home, this is dangerous and I am worried about you. Thank you for your patience today, I am sorry for the pain that I inflicted repairing your lacerations. Please call and schedule appointment with Dr. Cuevas for follow-up and evaluation. Please do not blow your nose monitor blood pressure at home, please return by ambulance if you have any worsening symptoms. *What to do: *Please continue to take your regular medications as directed. [x ] New medication prescriptions sent to your pharmacy: [[facility] [place] [facility]] [ ] New medication written as a paper prescription [ ] No new medications given *Please follow up with your primary care provider in 2-3 days, call for an appointment. Let them know you were seen in the Emergency Department and that we asked that you be seen for follow-up. We will electronically transmit a record of today's note if your PCP is in our system *If you do not have a primary care provider please contact [phone] to establish care with one of the [facility] primary care providers. *Return to Emergency Department if you should have any new, worsening, or concerning symptoms, such as [fever greater than 101F, chills, worsening pain, persistent vomiting or other bothersome symptoms]. Prescriptions: New cephalexin 500 mg capsule 500 mg PO BID 5 Days Qty: 10 0RF mupirocin 2 % ointment 1 applic topical BID 7 Days Qty: 15 0RF acetaminophen [Tylenol] 325 mg tablet 650 mg PO Q6H PRN (Reason: fever or pain) Qty: 30 0RF No Action levothyroxine 88 mcg tablet See Rx Instructions .ROUTE .COMPLEX Qty: 90 0RF Dose Instruction: TAKE 1 TABLET BY MOUTH EVERY DAY Rx Instructions: TAKE 1 TABLET BY MOUTH EVERY DAY aspirin 81 mg tablet,delayed release (DR/EC) 81 mg PO DAILY Qty: 30 12RF Referrals: Jose Cuevas MD [Physician] - 5-7 days Manuel Reynolds MD [Primary Care Provider] - 5-7 days Visit Report Forms: Patient Portal/API <Caden Balderas MD - Last Filed: 02/02/22 07:06> [facility] ED Attending Carlos Attestation: I was immediately available in the department for consultation. ?This documentation has been reviewed and I agree with assessment and plan. Supervised by Caden Balderas MD
[2022-02-01] MEDS: TET,DIPH,PERTUSS(ACELL),VAC/PF 0.5 ML SYRINGE IM (15:49)
[2022-02-01] MEDS: LIDOCAINE/PRILOCAINE 30 GM 1 APPLIC TOP (15:55)
--- NOTE | 2022-02-01 16:24 | DI.RAD.S_ITS ---
PROCEDURE: XR SHOULDER RT MIN 2V INDICATIONS: pain TECHNIQUE: 3 views of the shoulder were acquired. COMPARISON: [facility], CR, XR SHOULDER 2+ VIEWS RIGHT, 05/08/2017, 15:42. [facility], CR, XR SHOULDER 2+ VIEWS RIGHT, 11/30/2018, 10:33. [facility], CT, CT FACIAL BONES WO [facility], 02/01/2022, 16:13. [facility], CT, CT CERVICAL SPINE WO [facility], 02/01/2022, 15:37. [facility], CT, CT HEAD/BRAIN WO [facility], 02/01/2022, 15:37. FINDINGS: Bones: No fractures or dislocations. No suspicious bony lesions. Visualized ribs appear intact. Soft tissues: No suspicious soft tissue calcifications. The visualized lung demonstrates an unremarkable appearance. IMPRESSION: No acute injury is seen by plain film. Dictated by: Kenny Resendez M.D. on 02/01/2022 at 16:11 Approved by: Kenny Resendez M.D. on 02/01/2022 at 16:12
[2022-02-01] MEDS: BACITRACIN OINT 0.9 GM PCKT 1 APPLIC TOP (16:29)
[2022-02-01] MEDS: LIDOCAINE 2% INJ MDV 20ML SUBCUT (16:34)
--- NOTE | 2022-02-01 17:52 | CM.SWNOTE ---
Addendum entered by Cindy Anders 02/01/22 18:17: [employer] Note [employer] calls [employer] St[employer]cher Gaurav Guerrero with [facility] regarding patient and leaves regarding potential referral. [employer] to provide Gaurav's contact information to patient. AD [place] Original Note: DCP/[employer] Note [employer] receives consult from RN after patient's friend endorses concern for patient's safety at home. Patient is 86 y/o female who presents to ED with friend after GLF yesterday. Patient presents with facial lacerations and bruising on face and nose. Per CT, patient has nasal fracture. Patient has hx of Hypothyroidism, AMS, Anxiety, Cognitive Impairment, GERD, and Hypertension. [employer] reviews EMR and sees patient's SLUM score and recent PCP appt with Dr. Reynolds. It is reported that Dr. Reynolds's office called [facility] due to concern for patient's ability to care for self. Patient denies concern with ADLs. Per EMR, patient's in recent years. Patient's PCP is Dr. Reynolds, Patient has Medicare and [email or web address] insurance. [employer] enters room to meet with patient, present in room is patient's friend. Patient presents as A/Ox3. Patient endorses she resides at home alone in [place] and she fell yesterday and called her friend today who brought patient to the ED. Patient endorses this is her first fall. Patient denies need for DME and endorses independence with ADLs and ambulation. Patient endorses she drives her own car and has neighbors that could drive her if needed. Patient endorses she has neighbors she can call and friends as well if she was in need. Patient denies need for HH or caregiver at home. It is reported that patient has a friend named Ryann that is patient's fiduciary. Patient endorses regular f/u with PCP Dr. Reynolds. [employer] to provide patient with senior resource guide. Plan: Patient to d/c to home upon medical clearance. Patient to f/u with PCP. AD Morales
[2022-02-01] MEDS: cephALEXin 250 MG CAPSULE 500 MG PO (18:50)
--- NOTE | 2022-02-01 19:01 | PC.NURSE ---
Confirmed with provider about giving Keflex. Provider states to proceed.
--- NOTE | 2022-02-01 19:45 | PC.NURSE ---
Pt was ready for discharge, however, pt had elevated BP. Provider aware. BP rechecked in both arms and multiple times. Blood pressures remains elevated. Provider aware.
[2022-02-01] MEDS: METOPROLOL IR 25 MG TABLET PO (20:01)
== END 2022-02-01 20:29 | disposition home or self-care (01) ==
PROVIDERS: Emergency Provider Nurse Practitioner Critical Care Medicine; PCP Family Medicine
DX: S06.0XAA Concussion with loss of consciousness status unknown, initial encounter (principal); S02.2XXB Fracture of nasal bones, initial encounter for open fracture; S02.401B Maxillary fracture, unspecified side, initial encounter for open fracture; S02.32XA Fracture of orbital floor, left side, initial encounter for closed fracture; W18.30XA Fall on same level, unspecified, initial encounter; Z23 Encounter for immunization
CPT/HCPCS: 12013; 70450; 70486; 72125; 73030; 90471; 99284; 90715

== ENCOUNTER → 2022-03-25 10:58 | Outpatient (CLI) | payer MEDICARE, SELFPAY ==
[2022-02-05 11:46] VITALS: BMI 21.7
[2022-03-25 11:52] LABS: Add Manual Diff / Slide Review NO; Basophils Absolute Auto 0 /uL (0-100); Basophils Percent Auto 0.1 % (0-2); Eosinophils Absolute Auto 100 /uL (0-450); Eosinophils Percent Auto 1.8 % (2-4); Hematocrit 41.8 % (36-46); Hemoglobin 13.9 g/dL (12.0-16.0); Lymphocytes Absolute Auto 1400 /uL (1100-4500); Lymphocytes Percent Auto 25.1 % (25-40); Mean Corpuscular HGB Conc 33.2 % (30-36); Mean Corpuscular Hemoglobin 32.3 PG (26-34); Mean Corpuscular Volume 97.2 fL (80-100); Monocytes Absolute Auto 500 /uL (0-900); Monocytes Percent Auto 8.7 % (3-14); Neutrophils Absolute Auto 3500 /uL (1500-7000); Neutrophils Percent Auto 64.3 % (50-75); Platelet Count 188 X10^3/uL (150-400); Red Cell Distribution Width 13.3 % (11.6-14.8); White Blood Cell Count 5.5 X10^3/uL (4.5-11.0)
[2022-03-25 12:45] LABS: Alanine Aminotransferase 20 IU/L (<35); Alkaline Phosphatase 66 U/L (38-126); Aspartate Aminotransferase 24 IU/L (14-36); BUN Creatinine Ratio 21.3 (6-22); Bilirubin Total 0.5 mg/dL (0.2-1.3); Blood Urea Nitrogen 13 mg/dL (7-17); Calcium 9.4 mg/dL (8.4-10.2); Carbon Dioxide 24 mmol/L (22-32); Chloride 103 mmol/L (98-107); Cholesterol 257 mg/dL (140-199); Estimated Glomerular Filt Rate > 60 mL/min (>60); Glucose 100 mg/dL (80-110); HDL Cholesterol 68 mg/dL (40-60); HEMOLYSIS < 15 (0-50); LDL Cholesterol Calculated 138 mg/dL (<100); Potassium 4.1 mmol/L (3.4-5.1); Sodium 139 mmol/L (137-145); Total Protein 7.8 g/dL (6.3-8.2); Triglycerides 253 mg/dL (35-150)
[2022-03-25 13:13] LABS: TSH w/ Reflex to FT4 2.06 uIU/mL (0.47-4.68)
[2022-03-25 16:24] LABS: Creatinine Urine Random 140.8 mg/dL
[2022-03-25 16:27] LABS: Microalbumin Urine Random 1.7 mg/dL (0-1.6)
[2022-03-28 16:21] LABS: Albumin 4.4 g/dL (3.5-5.0); Albumin Globulin Ratio 1.3 (1.0-2.8); Globulin 3.4 g/dL (1.7-4.1)
== END ==
PROVIDERS: Family Medicine; PCP Internal Medicine; Referring Provider Internal Medicine; Visit Provider Internal Medicine
DX: I10 Essential (primary) hypertension (principal); E03.9 Hypothyroidism, unspecified; E05.90 Thyrotoxicosis, unspecified without thyrotoxic crisis or storm; F41.9 Anxiety disorder, unspecified; G31.84 Mild cognitive impairment of uncertain or unknown etiology; G45.9 Transient cerebral ischemic attack, unspecified
CPT/HCPCS: 36415; 80053; 80061; 82043; 82570; 84443; 85025

== ENCOUNTER 2022-05-21 14:39 | Emergency (ER) | payer MEDICARE, SELFPAY ==
[2022-02-05 11:46] VITALS: BMI 21.7
[2022-05-21] VITALS (8 sets, daily range): BP systolic 157–181; BP diastolic 70–81; PULSE 69–84; RESP 16; TEMP 36.3; O2SAT 96–99; BMI 27.3
--- NOTE | 2022-05-21 14:50 | DI.CT.S_ITS ---
PROCEDURE: CT HEAD/BRAIN WO CON INDICATIONS: sudden right eye pain and pressure. Now resolved. Hx CVA TECHNIQUE: Noncontrast 4.5 mm thick angled axial sections acquired from the foramen magnum to the vertex, with coronal and sagittal reformats. For radiation dose reduction, the following was used: automated exposure control, adjustment of mA and/or kV according to patient size. COMPARISON: [facility], CT, CT HEAD/BRAIN WO CON, 02/01/2022, 15:37. FINDINGS: Image quality: Excellent. CSF spaces: Basal cisterns are patent. No extra-axial fluid collections. The ventricles are symmetric in size and shape. Brain: No intracranial bleeds or masses. There is cerebral volume loss for age, with resultant ventricular and sulcal prominence. There are periventricular and deep white matter chronic small vessel ischemic changes. There is intracranial internal carotid artery atherosclerosis. Skull and face: Calvarium and visualized facial bones appear intact, without suspicious lesions. Sinuses: Visualized sinuses and mastoids are clear. IMPRESSION: No CT evidence of acute intracranial abnormalities. No significant changes from previous study. Dictated by: Hema Perkins M.D. on 05/21/2022 at 15:18 Approved by: Hema Perkins M.D. on 05/21/2022 at 15:19
--- NOTE | 2022-05-21 18:33 | ED.HA ---
HPI - Headache General Chief Complaint: Headache Stated Complaint: sharp stabbing pain behind rt eye/ hx cva Time Seen by Provider: 05/21/22 15:29 Source: patient Mode of arrival: Family Vehicle Limitations: no limitations History of Present Illness HPI Narrative: This is an 86-year-old female prior CVA, dementia, hypertension, GERD and hypothyroidism sent from walk-in clinic after having an episode of headache and pain behind the right eye that last about 10 minutes today. Patient was still having pressure in her right eye. Upon arrival her headache or eye pain had resolved. Patient notes maybe a little bit of blurry change, she can not really give me a timeline. She denies fever no active headache, no congestion, no runny nose, no passing out, no numbness, tingling weakness. Patient is with her guardian and caregiver who state that normal motion, no facial droop. Patient has not had any nausea, no vomiting, no chest pain or shortness of breath. She states that the pain is gone. She has seen an eye doctor in the past but does not have any known issues does not wear glasses or contacts, no known history of glaucoma. Patient has had a prior hysterectomy. Denies any prior surgeries or interventions to her eye. Related Data Previous Rx's Medication Instructions Recorded acetaminophen 325 mg tablet 650 mg PO Q6H PRN fever or pain 02/01/22 (Tylenol) #30 tabs levothyroxine 88 mcg tablet See Rx Instructions .Route 04/25/22 .COMPLEX #90 tabs sertraline 50 mg tablet (Zoloft) 50 mg PO DAILY #90 tabs 04/25/22 quetiapine 50 mg tablet (Seroquel) 100 mg PO BEDTIME #90 tabs 05/09/22 Allergies Allergy/AdvReac Type Severity Reaction Status Date / Time RAYMUNDO Inhibitors Allergy Severe RASH Verified 05/21/22 14:50 [RAYMUNDO INHIBITORS] lisinopril [LISINOPRIL] Allergy Severe Rash Verified 05/21/22 14:50 Sulfa (Sulfonamide Allergy Severe RASH Verified 05/21/22 14:50 Antibiotics) [SULFA (SULFONAMIDE ANTIBIOTICS)] Review of Systems Review of Systems ROS Unobtainable: All systems reviewed & are unremarkable except as noted in HPI and below Patient History Medical History Acquired hypothyroidism Altered mental status Alzheimer's dementia Anxiety Cognitive impairment Essential hypertension GERD with esophagitis Grief Surgical History Status post hysterectomy Family History Mother Colon cancer Social History household members: spouse Smoking Status: Never smoker Smoking Status: Never smoker alcohol intake frequency: 3 or more drinks per day Substance Use Type: does not use Exam Narrative Exam Narrative: GEN: well nourished, well appearing female, alert and oriented, patient appears to be in no acute distress. HEENT: Atraumatic, pupils are equal round reactive to light, extraocular movements are intact, nares are clear, TMs are clear with no fluid, there is no conjunctival pallor. Throat is clear without any exudates, erythema, tonsillar enlargement or uvular deviation, nontender on the temples. No erythema, no swelling or skin changes. Nontender over the temples. Visual acuity: right [20/100], left [20/20] without correction. IOP: Right 20 mm Hg, Left 17 mm Hg General: no globe trauma Eyelids: normal inspection, eyelids everted for exam on right. Conjunctiva/Sclera: normal inspection Corneas: normal inspection, examined with fluroscein on right without uptake. EOM: intact, no palsy/entrapment Pupils: PERRL, normal accomadation, pupil normal Anterior Chambers: normal inspection, no hypema Posterior: Attempted fundoscopic. HEART: Regular rate and rhythm without murmur, clicks, rubs. LUNGS:Lungs clear to auscultation, no wheezes, rales, crackles, chest moves symmetrically ABD:bowel sounds normal, soft, non-tender, no guarding, rebound, rigidity, no masses noted, no hepatosplenomegaly MSCL: Non-tender, no muscle atrophy, muscles strength 5/5 upper and lower extremities, full range of motion, normal gait NEURO:CN 2-12 intact, sensation normal SKIN: No rash, erythema or other skin changes Initial Vital Signs Initial Vital Signs: Vital Signs Temperature 97.3 F L 05/21/22 14:44 Pulse Rate 84 05/21/22 14:44 Respiratory Rate 16 05/21/22 14:44 Blood Pressure 157/72 H 05/21/22 14:44 Pulse Oximetry 99 05/21/22 14:44 Oxygen Delivery Method Room Air 05/21/22 14:44 Course Orders Ordered: ED Orders 05/21/22 14:50 CT head/brain wo con Stat Discontinued Medications Fluorescein Sodium (Fluorescein 1 Mg Strip) 1 mg EYE-BOTH NOW ONE Stop: 05/21/22 18:42 Last Admin: 05/21/22 18:48 Dose: 1 mg Documented By: BS Proparacaine HCl (Proparacaine 0.5% Ophth Serenity) 1 drops EYE-BOTH NOW ONE Stop: 05/21/22 18:42 Last Admin: 05/21/22 18:49 Dose: 1 drop Documented By: HARLAN Vital Signs Vital signs: Vital Signs - 8 hr 05/21/22 14:44 Temperature 97.3 F L Pulse Rate 84 Respiratory Rate 16 Blood Pressure 157/72 H Pulse Oximetry 99 Oxygen Delivery Method Room Air MDM - Headache Imaging Data CT scan - head: Radiologist's Impression: [address] [address] [address] Scan Report Signed Patient: Cinthia Sow MR#: [id number] : 1935 Acct:[id number] Age/Sex: 86 / F Date of Service: 05/21/22 Loc: ED Accession Number: [id number] ?? Procedure: CT head/brain wo con Ordering Provider: Darlene Briscoe D.O. PROCEDURE:? CT HEAD/BRAIN WO CON ? INDICATIONS:? sudden right eye pain and pressure. Now resolved. Hx CVA ? TECHNIQUE:? Noncontrast 4.5 mm thick angled axial sections acquired from the foramen magnum to the vertex, with coronal and sagittal reformats.? For radiation dose reduction, the following was used:? automated exposure control, adjustment of mA and/or kV according to patient size.? ? COMPARISON:? [facility], CT, CT HEAD/BRAIN WO CON, 02/01/2022, 15:37. ? FINDINGS:? Image quality:? Excellent.? ? CSF spaces:? Basal cisterns are patent.? No extra-axial fluid collections.? The ventricles are symmetric in size and shape.? ? Brain:? No intracranial bleeds or masses.? There is cerebral volume loss for age, with resultant ventricular and sulcal prominence.? There are periventricular and deep white matter chronic small vessel ischemic changes.? There is intracranial internal carotid artery atherosclerosis.? ? Skull and face:? Calvarium and visualized facial bones appear intact, without suspicious lesions.? ? Sinuses:? Visualized sinuses and mastoids are clear.? ? IMPRESSION:? No CT evidence of acute intracranial abnormalities.? No significant changes from previous study. ? ? Dictated by: Hema Perkins M.D. on 05/21/2022 at 15:18 ? ? Approved by: Hema Perkins M.D. on 05/21/2022 at 15:19?? MDM Narrative Medical decision making narrative: This is an 86-year-old female who presents with eye pain initially described as headache but also as eye pain. Patient and caregiver states seemed to be more behind the eye itself. She is noted to have a change to her visual acuity 2100 the right compared to left I do not have priors for comparison. Pressure slightly elevated on right but also left at 20 and 17 pain is resolved patient has some slight haziness I suspect her caregiver states she may have been told she had some cataracts in the past. My suspicion for acute angle glaucoma at this time is lower but I think she would benefit from prompt follow-up from Ophthalmology. Discharge Plan Departure Patient Disposition: Home Clinical Impression: Pain, eye, right Instructions: DI for Eye Pain Activity Restrictions/Additional Instructions: Please follow-up tomorrow with Ophthalmology for re-evaluation, the pressure in both eyes is slightly elevated and your vision is decreased on the right but I do not have priors for comparison. Please call 1st thing in the morning to set up an appointment to let them know that you have been asked to be evaluated by the ER they will often see the same day. Please return for recurrent eye pain, severe headaches, passing out, new numbness, tingling weakness, loss of vision, new rash, persistent vomiting or other new or concerning changes. Prescriptions: No Action quetiapine [Seroquel] 50 mg tablet 100 mg PO BEDTIME Qty: 90 3RF sertraline [Zoloft] 50 mg tablet 50 mg PO DAILY Qty: 90 0RF levothyroxine 88 mcg tablet See Rx Instructions .ROUTE .COMPLEX Qty: 90 0RF Dose Instruction: TAKE 1 TABLET BY MOUTH EVERY DAY Rx Instructions: TAKE 1 TABLET BY MOUTH EVERY DAY acetaminophen [Tylenol] 325 mg tablet 650 mg PO Q6H PRN (Reason: fever or pain) Qty: 30 0RF Referrals: Amanuel Reynoso MD [Physician] - Manuel Reynolds MD [Primary Care Provider] - Stand Alone Forms: Patient Portal/API
[2022-05-21] MEDS: FLUORESCEIN 1 MG STRIP EYE-BOTH (18:48)
[2022-05-21] MEDS: PROPARACAINE 0.5% OPHTH SOL 1 DROPS EYE-BOTH (18:49)
== END 2022-05-21 19:41 | disposition home or self-care (01) ==
PROVIDERS: Emergency Provider Emergency Medicine; PCP Family Medicine
DX: H57.11 Ocular pain, right eye (principal); R51.9 Headache, unspecified
CPT/HCPCS: 70450; 99282; 99284

== ENCOUNTER → 2022-05-28 11:48 | Outpatient (CLI) | payer MEDICARE, SELFPAY ==
[2022-02-05 11:46] VITALS: BMI 21.7
[2022-05-28 14:21] LABS: Free T4, Direct Thyroxine 1.28 ng/dL (0.78-2.19)
== END ==
PROVIDERS: PCP Family Medicine; Referring Provider Family Medicine; Visit Provider Family Medicine
DX: E03.9 Hypothyroidism, unspecified (principal); F02.C11 Dementia in other diseases classified elsewhere, severe, with agitation; G30.9 Alzheimer's disease, unspecified; R41.89 Other symptoms and signs involving cognitive functions and awareness
CPT/HCPCS: 36415; 84439; 84443

== ENCOUNTER → 2022-07-29 08:52 | Outpatient (CLI) | payer MEDICARE, SELFPAY ==
[2022-02-05 11:46] VITALS: BMI 21.7
[2022-07-29 11:30] LABS: Free T4, Direct Thyroxine 1.04 ng/dL (0.78-2.19)
== END ==
PROVIDERS: PCP Family Medicine; Referring Provider Family Medicine; Visit Provider Family Medicine
DX: E03.9 Hypothyroidism, unspecified (principal); F41.9 Anxiety disorder, unspecified; I10 Essential (primary) hypertension; K21.00 Gastro-esophageal reflux disease with esophagitis, without bleeding; R41.89 Other symptoms and signs involving cognitive functions and awareness
CPT/HCPCS: 36415; 84439; 84443

== ENCOUNTER → 2023-01-14 14:41 | Outpatient (CLI) | payer MEDICARE, SELFPAY ==
[2022-02-05 11:46] VITALS: BMI 21.7
[2023-01-14 15:32] LABS: Add Manual Diff / Slide Review NO; Basophils Absolute Auto 0 /uL (0-100); Basophils Percent Auto 0.3 % (0-2); Eosinophils Absolute Auto 200 /uL (0-450); Eosinophils Percent Auto 3.3 % (2-4); Hematocrit 35.4 % (36-46); Hemoglobin 12.1 g/dL (12.0-16.0); Lymphocytes Absolute Auto 1700 /uL (1100-4500); Lymphocytes Percent Auto 28.5 % (25-40); Mean Corpuscular HGB Conc 34.3 % (30-36); Mean Corpuscular Hemoglobin 30.3 PG (26-34); Mean Corpuscular Volume 88.3 fL (80-100); Monocytes Absolute Auto 600 /uL (0-900); Monocytes Percent Auto 10.2 % (3-14); Neutrophils Absolute Auto 3400 /uL (1500-7000); Neutrophils Percent Auto 57.7 % (50-75); Platelet Count 160 X10^3/uL (150-400); Red Blood Cell Count 4.01 X10^6/uL (4.0-5.2); Red Cell Distribution Width 13.1 % (11.6-14.8); White Blood Cell Count 5.8 X10^3/uL (4.5-11.0)
[2023-01-14 15:44] LABS: Alanine Aminotransferase 18 IU/L (<35); Albumin 4.1 g/dL (3.5-5.0); Albumin Globulin Ratio 1.7 (1.0-2.8); Alkaline Phosphatase 65 U/L (38-126); Aspartate Aminotransferase 23 IU/L (14-36); BUN Creatinine Ratio 18.6 (6-22); Bilirubin Total 0.4 mg/dL (0.2-1.3); Blood Urea Nitrogen 13 mg/dL (7-17); Calcium 9.7 mg/dL (8.4-10.2); Carbon Dioxide 27 mmol/L (22-32); Chloride 105 mmol/L (98-107); Estimated Glomerular Filt Rate > 60 mL/min (>60); Globulin 2.4 g/dL (1.7-4.1); Glucose 101 mg/dL (80-110); HEMOLYSIS < 15 (0-50); Sodium 139 mmol/L (137-145); Total Protein 6.5 g/dL (6.3-8.2)
[2023-01-14 16:22] LABS: Thyroid Stimulating Hormone < 0.015 uIU/mL (0.47-4.68)
== END ==
PROVIDERS: PCP Nurse Practitioner Family; Referring Provider Nurse Practitioner Family; Visit Provider Nurse Practitioner Family
DX: E03.9 Hypothyroidism, unspecified (principal); F41.1 Generalized anxiety disorder; F02.84 Dementia in other diseases classified elsewhere, unspecified severity, with anxiety
CPT/HCPCS: 36415; 80053; 84443; 85025

== ENCOUNTER → 2023-05-27 10:31 | Outpatient (CLI) | payer MEDICARE, SELFPAY ==
[2022-02-05 11:46] VITALS: BMI 21.7
[2023-05-27 12:04] LABS: Thyroid Stimulating Hormone < 0.015 uIU/mL (0.47-4.68)
== END ==
LOC: LAB 10:37
PROVIDERS: PCP Nurse Practitioner Family; Referring Provider Nurse Practitioner Family; Visit Provider Nurse Practitioner Family
DX: E03.9 Hypothyroidism, unspecified (principal)
CPT/HCPCS: 36415; 84443

== ENCOUNTER → 2023-07-09 11:47 | Outpatient (CLI) | payer MEDICARE, SELFPAY ==
[2022-02-05 11:46] VITALS: BMI 21.7
[2023-07-09 17:58] LABS: Thyroid Stimulating Hormone 0.521 uIU/mL (0.47-4.68)
== END ==
PROVIDERS: PCP Nurse Practitioner Family; Referring Provider Nurse Practitioner Family; Visit Provider Nurse Practitioner Family
DX: E03.9 Hypothyroidism, unspecified (principal)
CPT/HCPCS: 36415; 84443

== ENCOUNTER → 2023-09-09 14:23 | Outpatient (CLI) | payer MEDICARE, SELFPAY ==
[2022-02-05 11:46] VITALS: BMI 21.7
== END ==
PROVIDERS: PCP Nurse Practitioner Family; Referring Provider Nurse Practitioner Family; Visit Provider Nurse Practitioner Family
DX: E03.9 Hypothyroidism, unspecified (principal)
CPT/HCPCS: 36415; 84443